=== PATIENT | female | born 1935 | race Caucasian/White ===

== ENCOUNTER → 2017-04-21 | Outpatient (CLI) | payer OTHER ==
[~2017-04-21] MED LIST: ACET325 PO; ADVAIR DISKUS INH; ALBU90OI INH; ALBU90OI61 INH; ALLEGRA ALLERG180 MG PO; ALLO300 PO; AMIT10 PO; AMIT25 PO; AMLO10 PO; AMOCLA875 PO; ASCO500 PO; ASPI81CH PO; Acidophilus La100 GM PO; Amlodipine Besy10 MG PO; Augmentin 875-1 EACH PO; BENAML10/2 PO; CALCA500CH PO; CALCAVITD PO; CALCIUM 1,0001 EACH PO; CEFU250T47 PO; CEFU500 PO; CEPH250A; CEPH500 PO; COMBIVENT RESPIM4 GM IH; CONEST.625 PO; Cranberry405 MG PO; DULERA 100 MCG/13 GM INH; FERR325 PO; FEXO180 PO; FLUSAL2505 IH; FLUSAL2505 INH; FURO20 PO; GABA300 PO; GUAI600T33 PO; Gemfibrozil600 MG PO; HYDACE10B; HYDACE5 PO; HYDACE5325 PO; HYDCHL25 PO; Hydrocodone-Ap1 EA20 PO; K-Dur20 MEQ PO; LAVAP17G PO; LEVFLO500 PO; LEVO750 PO; LEVSOD25 PO; LEVSOD50 PO; MECL12.5 PO; METF500 PO; METO100ER PO; METO50ER PO; MIRALAX17 GM PO; MONT10T PO; MULVITMIND PO; Nitrofurantoin50 MG PO; OINTMENT TOP; OMEP20ER PO; OMEPRAZOLE MAGN20 MG PO; ONDA4ODT PO; OXYACE5T PO; OXYB5 PO; OXYC1TAB11 PO; OXYM.05NI; Ocuvite Lutein1 EACH PO; POTCHL10ER PO; POTCHL20ER PO; PRED20 PO; PREMARIN VAGINAL VAG; PROACE100 PO; Percocet 10-321 EACH PO; Prednisone20 MG PO; SIMV10 PO; SIMV40 PO; SINUS PRESSURE-10 MG PO; SODCHL.65S; STOOL SOFTENER1 EAC1 PO; SULFATRIM 800-120 ML PO; TAMS.4ER PO; TAMSULOSIN HCL0.4 MG PO
[2017-04-21 11:28] LABS: BASOPHILS ABSOLUTE AUTO 0.03 K/mm3 (0.00-0.23); BASOPHILS PERCENT AUTO 0 % (0-2); EOSINOPHILS PERCENT AUTO 1 % (0-6); Hematocrit 39.4 % (33.0-51.0); Hemoglobin 12.9 g/dL (11.5-16.0); IMMATURE GRAN ABSOLUTE AUTO 0.03 K/mm3 (0.00-0.10); IMMATURE GRAN PERCENT AUTO 0 % (0-1); LYMPHOCYTES ABSOLUTE AUTO 0.92 K/mm3 (0.84-5.20); LYMPHOCYTES PERCENT AUTO 8 % (21-46); MONOCYTES PERCENT AUTO 6 % (4-13); Mean Corpuscular HGB 30.3 pg (26.0-34.0); Mean Corpuscular HGB Conc 32.7 g/dL (31.5-36.5); Mean Corpuscular Volume 93 fL (80-100); Mean Platelet Volume 10.3 fL (9.1-12.4); NEUTROPHILS ABSOLUTE AUTO 9.73 K/mm3 (1.96-9.15); NEUTROPHILS PERCENT AUTO 84 % (41-73); Platelet Count 187 K/mm3 (150-400); RDW Coefficient Variation 16.4 % (11.7-14.2); RDW Standard Deviation 55.6 fL (35.1-46.3); Red Blood Cell Count 4.26 M/mm3 (3.80-5.20); White Blood Cell Count 11.51 K/mm3 (4.00-11.30)
[2017-04-21 11:41] LABS: Alanine Aminotransfer (ALT/SGP 44 U/L (12-78); Albumin, Blood 3.4 g/dL (3.4-5.0); Albumin/Globulin Ratio 0.9 (0.8-1.8); Alk Phos 86 U/L (50-136); Anion Gap 7 mmol/L (6-16); Aspartate Aminotrans (AST/SGOT 80 U/L (12-37); Bilirubin, Total 0.3 mg/dL (0.1-1.0); Blood Urea Nitrogen 13 mg/dL (8-24); Bun/Creatinine Ratio 17.2 (12.0-20.0); CO2, Blood 25 mmol/L (21-32); Calcium, Blood 8.9 mg/dL (8.5-10.1); Chloride, Blood 105 mmol/L (98-108); Creatinine, Blood 0.75 mg/dL (0.40-1.00); Globulin, Blood 3.7 g/dL (2.2-4.0); Glomerular Filtration Rate >60 (60-); Glucose, Blood 152 mg/dL (70-99); Potassium, Blood 3.9 mmol/L (3.5-5.5); Sodium, Blood 137 mmol/L (136-145); Total Protein, Blood 7.1 g/dL (6.4-8.2)
== END ==
LOC: LAB 11:12
PROVIDERS: Family Medicine
DX: R30.0 Dysuria (principal); R06.02 Shortness of breath
CPT/HCPCS: 36415; 80053; 85025; 85651; 87086

== ENCOUNTER → 2017-05-22 | Outpatient (CLI) | payer OTHER ==
[2017-05-22 19:49] LABS: Bacteria Few /hpf; Red Blood Cells, Urine 0-2 /hpf (0-2); Squamous Epithelial Cells Few /hpf (Few); White Blood Cells, Urine 0-2 /hpf (0-5)
== END | disposition home or self-care (01) ==
LOC: LAB 14:16
PROVIDERS: Hospitalist
DX: N39.0 Urinary tract infection, site not specified (principal)
CPT/HCPCS: 81015; 87086

== ENCOUNTER → 2017-12-27 | Outpatient (CLI) | payer OTHER ==
[2017-12-27 18:44] LABS: BASOPHILS ABSOLUTE AUTO 0.06 K/mm3 (0.00-0.23); BASOPHILS PERCENT AUTO 0 % (0-2); EOSINOPHILS ABSOLUTE AUTO 0.09 K/mm3 (0.00-0.68); EOSINOPHILS PERCENT AUTO 1 % (0-6); Hematocrit 45.9 % (33.0-51.0); Hemoglobin 15.3 g/dL (11.5-16.0); IMMATURE GRAN ABSOLUTE AUTO 0.05 K/mm3 (0.00-0.10); IMMATURE GRAN PERCENT AUTO 0 % (0-1); LYMPHOCYTES ABSOLUTE AUTO 2.17 K/mm3 (0.84-5.20); LYMPHOCYTES PERCENT AUTO 16 % (21-46); MONOCYTES ABSOLUTE AUTO 1.09 K/mm3 (0.16-1.47); MONOCYTES PERCENT AUTO 8 % (4-13); Mean Corpuscular HGB 31.5 pg (26.0-34.0); Mean Corpuscular HGB Conc 33.3 g/dL (31.5-36.5); Mean Corpuscular Volume 94 fL (80-100); Mean Platelet Volume 10.2 fL (9.1-12.4); NEUTROPHILS ABSOLUTE AUTO 10.26 K/mm3 (1.96-9.15); NEUTROPHILS PERCENT AUTO 75 % (41-73); Platelet Count 224 K/mm3 (150-400); RDW Coefficient Variation 14.7 % (11.7-14.2); RDW Standard Deviation 51.3 fL (35.1-46.3); Red Blood Cell Count 4.86 M/mm3 (3.80-5.20); White Blood Cell Count 13.72 K/mm3 (4.00-11.30)
[2017-12-27 19:04] LABS: Calcium, Blood 9.5 mg/dL (8.5-10.1); Creatinine, Blood 0.92 mg/dL (0.40-1.00); Thyroid Stimulating Hormone 0.817 uIU/mL (0.360-4.800)
== END | disposition home or self-care (01) ==
LOC: LAB EV 18:39 → LAB SHORT 18:39
PROVIDERS: Physician Assistant Surgical
DX: I10 Essential (primary) hypertension (principal)
CPT/HCPCS: 80048; 84443; 85025

== ENCOUNTER → 2018-08-02 | Outpatient (CLI) | payer OTHER | END | disposition home or self-care (01) | LOC: LAB SHORT 16:20 → LAB 16:20 | DX: N34.2 Other urethritis (principal) | CPT/HCPCS: 87077; 87086; 87186 ==

== ENCOUNTER 2018-12-11 13:05 | Day surgery (SDC) | payer OTHER ==
[~2018-12-11] VITALS: Ht 165.1 cm; Wt 63.4 kg
== END 2018-12-11 14:16 | disposition home or self-care (01) ==
LOC: ORSCSDS 13:05
PROVIDERS: Anesthesiology
PROC: 3E0R33Z Introduction of Anti-inflammatory into Spinal Canal, Percutaneous Approach (ICD-10-PCS; principal; 2018-12-11 14:15)
DX: M51.16 Intervertebral disc disorders with radiculopathy, lumbar region (principal); E11.9 Type 2 diabetes mellitus without complications; I10 Essential (primary) hypertension; K21.9 Gastro-esophageal reflux disease without esophagitis; Z87.891 Personal history of nicotine dependence; Z79.84 Long term (current) use of oral hypoglycemic drugs; Z79.899 Other long term (current) drug therapy
CPT/HCPCS: J1040

== ENCOUNTER → 2019-07-01 | Outpatient (CLI) | payer OTHER | END | disposition home or self-care (01) | LOC: LAB SHORT 17:27 → LAB 17:27 | DX: N34.2 Other urethritis (principal) | CPT/HCPCS: 87077; 87086; 87186 ==

== ENCOUNTER → 2020-02-10 | Outpatient (CLI) | payer OTHER | END | disposition home or self-care (01) | LOC: LAB SHORT 15:05 → OLS 15:05 | DX: N34.2 Other urethritis (principal) | CPT/HCPCS: 87077; 87086; 87186 ==

== ENCOUNTER → 2020-02-26 | Outpatient (CLI) | payer OTHER | END | disposition home or self-care (01) | LOC: LAB SHORT 17:12 → LAB 17:12 | DX: N34.2 Other urethritis (principal) | CPT/HCPCS: 87077; 87086; 87186 ==

== ENCOUNTER 2020-04-27 17:43 | Inpatient (IN) | payer OTHER ==
[~2020-04-27] VITALS: Ht 165.1 cm; Wt 58.3 kg
[2020-04-27 18:48] LABS: BASOPHILS ABSOLUTE AUTO 0.07 K/mm3 (0.00-0.23); BASOPHILS PERCENT AUTO 0 % (0-2); EOSINOPHILS PERCENT AUTO 0 % (0-6); Hematocrit 41.5 % (33.0-51.0); Hemoglobin 13.3 g/dL (11.5-16.0); IMMATURE GRAN ABSOLUTE AUTO 0.19 K/mm3 (0.00-0.10); IMMATURE GRAN PERCENT AUTO 1 % (0-1); LYMPHOCYTES ABSOLUTE AUTO 1.99 K/mm3 (0.84-5.20); LYMPHOCYTES PERCENT AUTO 8 % (21-46); MONOCYTES ABSOLUTE AUTO 2.36 K/mm3 (0.16-1.47); MONOCYTES PERCENT AUTO 9 % (4-13); Mean Corpuscular HGB 31.1 pg (26.0-34.0); Mean Corpuscular Volume 97 fL (80-100); Mean Platelet Volume 10.9 fL (9.1-12.4); NEUTROPHILS ABSOLUTE AUTO 21.63 K/mm3 (1.96-9.15); NEUTROPHILS PERCENT AUTO 82 % (41-73); Platelet Count 218 K/mm3 (150-400); RDW Coefficient Variation 15.3 % (11.7-14.2); RDW Standard Deviation 54.4 fL (35.1-46.3); Red Blood Cell Count 4.27 M/mm3 (3.80-5.20); White Blood Cell Count 26.24 K/mm3 (4.00-11.30)
[2020-04-27] MEDS ORDERED: FUROSEMIDE20 MG PO (19:06)
[2020-04-27] MEDS ORDERED: ALLO300 PO ×2 (19:06→19:09)
[2020-04-27] MEDS ORDERED: SYNTHROID50 MC1 PO (19:07)
[2020-04-27 19:08] LABS: Albumin, Blood 3.2 g/dL (3.4-5.0); Bilirubin, Total 0.5 mg/dL (0.1-1.0); Bun/Creatinine Ratio 24.6 (12.0-20.0); Calcium, Blood 9.6 mg/dL (8.5-10.1); Creatinine, Blood 1.18 mg/dL (0.40-1.00); Globulin, Blood 3.3 g/dL (2.2-4.0); Potassium, Blood 4.8 mmol/L (3.5-5.5); Total Protein, Blood 6.5 g/dL (6.4-8.2)
[2020-04-27] MEDS ORDERED: NEURONTIN300 MG PO ×2 (19:08→19:41)
[2020-04-27] MEDS ORDERED: OXYCODONE-ACET1 EAC2 PO ×2 (19:08→19:46)
[2020-04-27] MEDS ORDERED: AMIT25 PO (19:10)
[2020-04-27] MEDS ORDERED: ROSUVASTATIN CAL5 MG PO (19:11)
[2020-04-27] MEDS ORDERED: TAMSULOSIN HCL0.4 M1 PO (19:11)
[2020-04-27] MEDS ORDERED: PRINIVIL10 MG PO ×2 (19:12→19:44)
[2020-04-27] MEDS ORDERED: FLUTICASONE-SA1 EAC9 INH ×2 (19:12→19:43)
[2020-04-27] MEDS ORDERED: AMLODIPINE BESY10 MG PO (19:13)
[2020-04-27] MEDS ORDERED: HIPREX1 G1 PO ×2 (19:13→19:44)
[2020-04-27] MEDS ORDERED: METF500 PO (19:13)
[2020-04-27] MEDS ORDERED: OMEP20ER PO ×2 (19:13→19:44)
[2020-04-27] MEDS ORDERED: Ventolin/Prove6.7 GM INH (19:14)
[2020-04-27] MEDS ORDERED: METO100ER PO (19:42)
[2020-04-27] MEDS ORDERED: ASCO500 PO (19:45)
[2020-04-27 20:41] LABS: Influenza A, PCR Negative (NEGATIVE); Influenza B, PCR Negative (NEGATIVE); Resp Syncytial Virus, PCR Negative (NEGATIVE); SARS-Cov-2 (COVID-19) PCR, MMC Negative (NEGATIVE)
--- NOTE | 2020-04-28 | NUR ---
Critical lactic acid value 2.[address] Keller notified, order for LR at 100 cc per hour.
[2020-04-28] MEDS ORDERED: FLUT1DIS5 INH (03:44)
[2020-04-28 05:10] LABS: Source, Urine Clean Catch
[2020-04-28 05:23] LABS: Appearance, Urine Hazy (Clear); Bilirubin, Urine Neg (Neg); Blood, Urine 1+ (Neg); Color, Urine Yellow (P-Yellow); Glucose Qualitative, Urine Neg (Neg); Ketones, Urine Neg (Neg); Leukocyte Esterase, Urine 3+ (Neg); Nitrite, Urine Neg (Neg); Protein, Urine 1+ (Neg); Urobilinogen, Urine NORM (Normal)
[2020-04-28 05:31] LABS: Bacteria Many /hpf; Red Blood Cells, Urine 0-2 /hpf (0-2); Squamous Epithelial Cells Mod /hpf (Few); White Blood Cells, Urine TNTC /hpf (0-5)
[2020-04-28 05:32] LABS: Transitional Epithelial Cells Few /hpf (0-Rare)
--- NOTE | 2020-04-28 06:38 | NUR ---
SHIFT SUMMARY NEW ADMIT TO FLOOR LAST NIGHT. ADMITTED FOR SEPSIS R/T PNEUMONIA. ACCORDING TO ER NURSE REPORT PT WAS HAVING BLOOD IN SPUTUM, BUT NONE SINCE ON MED FLOOR. AOX4. WHEN PT ARRIVED TO FLOOR SPO2 LOW 70'S ON RA, PLACED ON 2L O2 & SPO2 INCREASED TO 92%. PT GETS DYSPNIC c ACTIVITY. RT CHECKED SPO2 AFTER AMBULATION LAST NIGHT & SAID PT DESATS TO HIGH 80'S c AMBULATION SO THEY INCREASED O2 TO 3L. LUNGS SOUND DIM c EXP WHEEZES HEARD IN L LOBES. PT HAD CRITICAL LA @2.4 LAST NIGHT, HOSPITALIST ORDERED LR @100ML/HR, LA HAS SINCE DECREASED TO 1.9. PT REPORTS PAIN "IN LUNGS" / & BLE FROM NEUROPATHY, MEDICATED 1X c OXYCODONE. SBY ASSIST c TRANSFERS. CALL LIGHT IN REACH.
--- NOTE | 2020-04-28 17:01 | NUR ---
PT IS A/OX3, PLEASANT AND COOPERATIVE, THE PT IS UP WITH MINIMAL ASSIST TO THE BATHROOM, THE PT IS ON 3L/MIN O2 VIA NC, THE PT WAS MEDICATED FOR PAIN IN HER CHEST WITH COUGHING X2 TODAY, THE PT REPORTED HAVING SHAKES THIS AM IT WAS DETERMINED THAT THE SHAKINESS WAS MOST LIKLY FROM PREDNISONE AND AN ELEVATED BLOOD SUGAR, THE SHAKING IMPROVED THIS AFTERNOON, THE PTS DAUGHTER IS IN TO VISIT, CALL LIGHT IN REACH, WILL CONTINUE TO MONITOR AND ASSESS FOR CHANGES
--- NOTE | 2020-04-29 04:21 | NUR ---
SHIFT SUMMARY: VSS. AFEB. AAOX3. ABLE TO MAKE NEEDS KNOWN. CALL APPROPRIATELY. NO ATTEMPTS TO SELF T/F- ASSISTANCE NEEDED W/ 02 AND IV TUBING MANAGEMENT. CONTINENT. IV FLUIDS INFUSING CONTINUOUSLY. LSCTA. 02 90-95% ON 2L VIA NC. NO ACUTE CONCERNS OVERNIGHT. WILL CONT TO MONITOR.
--- NOTE | 2020-04-29 09:26 | NUR ---
O2 SATS ATTEMPTED TO TAKE THE PT OFF OF O2, PT SATS WITH ACTIVITY RANGED 87% TO 89%, REAPPLIED O2 @ 2L/MIN
[2020-04-29 13:03] LABS: BASOPHILS ABSOLUTE AUTO 0.03 K/mm3 (0.00-0.23); BASOPHILS PERCENT AUTO 0 % (0-2); EOSINOPHILS ABSOLUTE AUTO 0.02 K/mm3 (0.00-0.68); EOSINOPHILS PERCENT AUTO 0 % (0-6); Hematocrit 37.5 % (33.0-51.0); Hemoglobin 11.8 g/dL (11.5-16.0); IMMATURE GRAN ABSOLUTE AUTO 0.14 K/mm3 (0.00-0.10); IMMATURE GRAN PERCENT AUTO 1 % (0-1); LYMPHOCYTES ABSOLUTE AUTO 1.05 K/mm3 (0.84-5.20); LYMPHOCYTES PERCENT AUTO 6 % (21-46); MONOCYTES ABSOLUTE AUTO 0.99 K/mm3 (0.16-1.47); MONOCYTES PERCENT AUTO 6 % (4-13); Mean Corpuscular HGB 31.1 pg (26.0-34.0); Mean Corpuscular HGB Conc 31.5 g/dL (31.5-36.5); Mean Corpuscular Volume 99 fL (80-100); Mean Platelet Volume 10.7 fL (9.1-12.4); NEUTROPHILS ABSOLUTE AUTO 14.54 K/mm3 (1.96-9.15); NEUTROPHILS PERCENT AUTO 87 % (41-73); Platelet Count 205 K/mm3 (150-400); RDW Coefficient Variation 15.8 % (11.7-14.2); RDW Standard Deviation 57.2 fL (35.1-46.3); White Blood Cell Count 16.77 K/mm3 (4.00-11.30)
[2020-04-29 13:18] LABS: Alanine Aminotransfer (ALT/SGP 25 U/L (12-78); Albumin, Blood 2.8 g/dL (3.4-5.0); Albumin/Globulin Ratio 0.8 (0.8-1.8); Alk Phos 82 U/L (50-136); Anion Gap 5 mmol/L (6-16); Aspartate Aminotrans (AST/SGOT 26 U/L (12-37); Bilirubin, Total 0.2 mg/dL (0.1-1.0); Blood Urea Nitrogen 32 mg/dL (8-24); Bun/Creatinine Ratio 36.7 (12.0-20.0); CO2, Blood 26 mmol/L (21-32); Calcium, Blood 9.2 mg/dL (8.5-10.1); Chloride, Blood 108 mmol/L (98-108); Creatinine, Blood 0.87 mg/dL (0.40-1.00); Globulin, Blood 3.7 g/dL (2.2-4.0); Glomerular Filtration Rate >60 (60-); Glucose, Blood 109 mg/dL (70-99); Potassium, Blood 4.4 mmol/L (3.5-5.5); Sodium, Blood 139 mmol/L (136-145); Total Protein, Blood 6.5 g/dL (6.4-8.2)
[2020-04-29] MEDS ORDERED: AZIT500 PO (14:01)
[2020-04-29] MEDS ORDERED: IPRAT-ALBUT 0.5-3 ML INH (14:03)
[2020-04-29] MEDS ORDERED: PRED20 PO (14:04)
[2020-04-29] MEDS ORDERED: CEFD300 PO (14:05)
--- NOTE | 2020-04-29 16:21 | NUR ---
PT DISCHARGED THE PT AND HER FAMILY VERBALIZED UNDERSTANDING OF THE DC INSTRUCTIONS, THE PTS PRESCRIPTIONS WERE FAXED TO [facility] REQUESTED, THE PT'S OXYGEN WAS DELIVERED AND APPLIED PRIOR TO DC, THE PT WAS TRANSFERED VIA WHEELCHAIR ACCOMPANIED BY HER DAUGHTER AND THE BALING MACHINE OPERATOR, THE PT WAS A/OX3 AT THE TIME OF DC
== END 2020-04-29 14:46 | disposition home or self-care (01) | DRG 871 ==
LOC: ER 17:43 → MEDS 21:17 → SURS 21:17 → MEDS 21:33
PROVIDERS: Emergency Medicine; Internal Medicine; ADMIT Internal Medicine
DX: A41.9 Sepsis, unspecified organism (principal); J18.9 Pneumonia, unspecified organism; N39.0 Urinary tract infection, site not specified; J44.0 Chronic obstructive pulmonary disease with (acute) lower respiratory infection; J44.1 Chronic obstructive pulmonary disease with (acute) exacerbation; J96.11 Chronic respiratory failure with hypoxia; I13.0 Hypertensive heart and chronic kidney disease with heart failure and stage 1 through stage 4 chronic kidney disease, or unspecified chronic kidney disease; Z20.828 Contact with and (suspected) exposure to other viral communicable diseases; N18.30 Chronic kidney disease, stage 3 unspecified; E11.22 Type 2 diabetes mellitus with diabetic chronic kidney disease; I27.20 Pulmonary hypertension, unspecified; I34.0 Nonrheumatic mitral (valve) insufficiency; I50.9 Heart failure, unspecified; Z99.81 Dependence on supplemental oxygen; Z87.891 Personal history of nicotine dependence; Z79.84 Long term (current) use of oral hypoglycemic drugs; Z79.51 Long term (current) use of inhaled steroids
CPT/HCPCS: 0241U; 36415; 71045; 80053; 81001; 82947; 83605; 83880; 85025; 87040; 87077; 87086; 87186; 93005; 93010; 94640; 94664; 94760; 94761; 96365; 99285-25; A9270; A9270-GY; J0696; J1650; J2543; J7120; J7512

== ENCOUNTER 2020-10-22 16:35 | Inpatient (IN) | payer MEDICARE, OTHER ==
[~2020-10-22] VITALS: Ht 165.1 cm; Wt 59.0 kg
[~2020-10-22 16:35] MED LIST changes: +AMLODIPINE BESY10 MG PO; +AZIT500 PO; +CEFD300 PO; +FLUT1DIS5 INH; +FLUTICASONE-SA1 EAC9 INH; +FUROSEMIDE20 MG PO; +HIPREX1 G1 PO; +IPRAT-ALBUT 0.5-3 ML INH; +LISI10 PO; +NEURONTIN300 MG PO; +OXYCODONE-ACET1 EAC2 PO; +PRINIVIL10 MG PO; +ROSUVASTATIN CAL5 MG PO; +SYNTHROID50 MC1 PO; +TAMSULOSIN HCL0.4 M1 PO; +Ventolin/Prove6.7 GM INH
[2020-10-22] MEDS ORDERED: POTCHL20ER PO (16:58)
[2020-10-22 17:06] LABS: BASOPHILS ABSOLUTE AUTO 0.04 K/mm3 (0.00-0.23); BASOPHILS PERCENT AUTO 0 % (0-2); EOSINOPHILS PERCENT AUTO 0 % (0-6); Hemoglobin 14.2 g/dL (11.5-16.0); IMMATURE GRAN ABSOLUTE AUTO 0.15 K/mm3 (0.00-0.10); IMMATURE GRAN PERCENT AUTO 1 % (0-1); LYMPHOCYTES ABSOLUTE AUTO 0.79 K/mm3 (0.84-5.20); LYMPHOCYTES PERCENT AUTO 4 % (21-46); MONOCYTES ABSOLUTE AUTO 1.41 K/mm3 (0.16-1.47); MONOCYTES PERCENT AUTO 6 % (4-13); Mean Corpuscular HGB Conc 33.8 g/dL (31.5-36.5); Mean Corpuscular Volume 95 fL (80-100); Mean Platelet Volume 10.5 fL (9.1-12.4); NEUTROPHILS ABSOLUTE AUTO 20.37 K/mm3 (1.96-9.15); NEUTROPHILS PERCENT AUTO 89 % (41-73); Platelet Count 183 K/mm3 (150-400); RDW Coefficient Variation 14.7 % (11.7-14.2); RDW Standard Deviation 51.2 fL (35.1-46.3); Red Blood Cell Count 4.44 M/mm3 (3.80-5.20); White Blood Cell Count 22.76 K/mm3 (4.00-11.30)
[2020-10-22 17:32] LABS: Alanine Aminotransfer (ALT/SGP 26 U/L (12-78); Albumin, Blood 3.4 g/dL (3.4-5.0); Albumin/Globulin Ratio 0.8 (0.8-1.8); Alk Phos 88 U/L (50-136); Anion Gap 6 mmol/L (6-16); Aspartate Aminotrans (AST/SGOT 38 U/L (12-37); Bilirubin, Total 0.9 mg/dL (0.1-1.0); Blood Urea Nitrogen 13 mg/dL (8-24); Bun/Creatinine Ratio 17.1 (12.0-20.0); CO2, Blood 26 mmol/L (21-32); Calcium, Blood 9.5 mg/dL (8.5-10.1); Chloride, Blood 98 mmol/L (98-108); Creatinine, Blood 0.76 mg/dL (0.40-1.00); Globulin, Blood 4.5 g/dL (2.2-4.0); Glomerular Filtration Rate >60 (60-); Glucose, Blood 145 mg/dL (70-99); Potassium, Blood 3.7 mmol/L (3.5-5.5); Sodium, Blood 130 mmol/L (136-145); Total Protein, Blood 7.9 g/dL (6.4-8.2)
[2020-10-22] MEDS ORDERED: CYMBALTA30 M2 PO (18:09)
[2020-10-22] MEDS ORDERED: SPIRIVA RESPIMAT4 G3 INH (18:14)
[2020-10-22 18:44] LABS: Base Excess Venous 3.6 mmol/L; Bicarbonate Venous 25.4 mmol/L (24.0-30.0); PCO2 Venous 48.2 mmHg (38-42); PO2 Venous 24.6 mmHg (38-42); pH Blood Venous 7.38 (7.34-7.37)
[2020-10-22 19:12] LABS: International Normalized Ratio 1.07; Prothrombin Time Results 11.5 Sec (9.7-11.5)
[2020-10-22] MEDS ORDERED: PRESERVISION A1 EAC1 PO (19:17)
[2020-10-22 19:25] LABS: Source, Urine Catheter
[2020-10-22 19:31] LABS: Appearance, Urine Cloudy (Clear); Bilirubin, Urine Neg (Neg); Blood, Urine 4+ (Neg); Color, Urine Yellow (P-Yellow); Glucose Qualitative, Urine Neg (Neg); Ketones, Urine 1+ (Neg); Leukocyte Esterase, Urine 3+ (Neg); Nitrite, Urine Pos (Neg); Protein, Urine 3+ (Neg); Specific Gravity, Urine 1.015 (1.003-1.022); Urobilinogen, Urine NORM (Normal)
[2020-10-22 19:40] LABS: Bacteria Many /hpf; Red Blood Cells, Urine 25-50 /hpf (0-2); Squamous Epithelial Cells Mod /hpf (Few); White Blood Cells, Urine TNTC /hpf (0-5)
[2020-10-22 19:41] LABS: Transitional Epithelial Cells Few /hpf (0-Rare)
[2020-10-22 21:29] LABS: SARS-Cov-2 (COVID-19) PCR, MMC NEGATIVE (NEGATIVE)
--- NOTE | 2020-10-22 22:50 | NUR ---
PT ARRIVED TO FLOOR AT APPOX 2044. PT HAD SOME CONFUSION AND IS [place]. PT DENIED CHES PAIN. PT WAS ON BIPAP. VITALS WERE STABLE. DAUGHTERS AT BEDSIDE. DAUGHTER WILL BE STAYING THE NIGHT "IN CASE SHE GETS CONFUSED AGAIN." DAUGHTER STATES THAT THERE IS NO DIAGNOSIS OF DEMENTIA OR PRIOR CONFUSION.
[2020-10-23 01:48] LABS: BASOPHILS ABSOLUTE AUTO 0.03 K/mm3 (0.00-0.23); BASOPHILS PERCENT AUTO 0 % (0-2); EOSINOPHILS PERCENT AUTO 0 % (0-6); Hematocrit 39.3 % (33.0-51.0); Hemoglobin 13.2 g/dL (11.5-16.0); IMMATURE GRAN ABSOLUTE AUTO 0.19 K/mm3 (0.00-0.10); IMMATURE GRAN PERCENT AUTO 1 % (0-1); LYMPHOCYTES ABSOLUTE AUTO 0.59 K/mm3 (0.84-5.20); LYMPHOCYTES PERCENT AUTO 3 % (21-46); MONOCYTES ABSOLUTE AUTO 0.75 K/mm3 (0.16-1.47); MONOCYTES PERCENT AUTO 4 % (4-13); Mean Corpuscular HGB 31.7 pg (26.0-34.0); Mean Corpuscular HGB Conc 33.6 g/dL (31.5-36.5); Mean Corpuscular Volume 95 fL (80-100); NEUTROPHILS ABSOLUTE AUTO 17.34 K/mm3 (1.96-9.15); NEUTROPHILS PERCENT AUTO 92 % (41-73); Platelet Count 156 K/mm3 (150-400); RDW Coefficient Variation 14.6 % (11.7-14.2); RDW Standard Deviation 50.9 fL (35.1-46.3); Red Blood Cell Count 4.16 M/mm3 (3.80-5.20)
[2020-10-23 02:14] LABS: Alanine Aminotransfer (ALT/SGP 23 U/L (12-78); Albumin, Blood 2.8 g/dL (3.4-5.0); Albumin/Globulin Ratio 0.7 (0.8-1.8); Alk Phos 77 U/L (50-136); Anion Gap 8 mmol/L (6-16); Aspartate Aminotrans (AST/SGOT 32 U/L (12-37); Bilirubin, Total 0.5 mg/dL (0.1-1.0); Blood Urea Nitrogen 14 mg/dL (8-24); Bun/Creatinine Ratio 19.4 (12.0-20.0); CO2, Blood 26 mmol/L (21-32); Calcium, Blood 8.8 mg/dL (8.5-10.1); Chloride, Blood 102 mmol/L (98-108); Creatinine, Blood 0.72 mg/dL (0.40-1.00); Globulin, Blood 3.8 g/dL (2.2-4.0); Glomerular Filtration Rate >60 (60-); Glucose, Blood 187 mg/dL (70-99); Potassium, Blood 2.9 mmol/L (3.5-5.5); Sodium, Blood 136 mmol/L (136-145); Total Protein, Blood 6.6 g/dL (6.4-8.2)
[2020-10-23 02:20] LABS: Troponin I 0.874 ng/mL (0.000-0.040)
--- NOTE | 2020-10-23 02:20 | NUR ---
NOTIFIED CHARGE NURSE LINDY MORRIS ABOUT INCREASE OF TROPONIN LABS. WILL CONTINUE TO MONITOR.
--- NOTE | 2020-10-23 06:35 | NUR ---
SHIFT SUMMARY PT IS ALERT WITH SOME CONFUSION VITALS ARE STABLE AND IS ON 4L NC. PT DENIES CHEST PAIN OR SOB. PT CAME ONTO FLOOR ON BIPAP WAS LATER ABLE TO BE ON NC. PT IS SATING 92% AND ABOVE BUT DESATS WITH EXERTION. PT IS UP TO BSC WITH MODERATE ASSIST. PT HAS BEEN DIAPHORETIC AND HAS HAD CHILLS T/O NIGHT. PT'S TEMP HAS BEEN TAKEN ORAL AND TEMPORAL. PT USES CALL LIGHT APPROPRIETLY WHEN ON COMMODE BUT GETS UP WITHOUT CALLING. BED ALARM HAS BEEN ON T/O NIGHT.
--- NOTE | 2020-10-23 10:53 | NUR ---
PATIENT COMPLAINS OF CHEST PAIN AND TINGLING RADIATING FROM R. CHEST TO UPPER ARM/SHOULDER. PATIENT APPEARS DIAPHORETIC, AND COMPLAINS OF NAUSEA. PATIENT MEDICATED WITH ZOFRAN PER EMAR. DR. BIRMINGHAM NOTIFIED, ORDERS FOR EKG, CARDIOLOGY CONSULT, AND HEPARIN DRIP GIVEN.
--- NOTE | 2020-10-23 17:25 | NUR ---
SHIFT SUMMARY PATIENT ALERT AND ORIENTED, IRRITABLE AND FORGETFUL AT TIMES. BED ALARM IN PLACE. PATIENT COMPLAINED OF CHEST PAIN ONCE THIS SHIFT, SEE NURSE NOTE AT 1053. NO OTHER ACUTE EVENTS THIS SHIFT. PATIENT REMAINED ON 3-5 L O2 VIA NASAL CANNULA. SBA TO BEDSIDE COMMODE. PATIENT COMPLAINED OF "PAIN ALL OVER", MEDICATED PER EMAR. PATIENT ASSISTED WITH REPOSITIONIG THROUGHOUT SHIFT.
--- NOTE | 2020-10-23 20:00 | NUR ---
ASSUMED CARE PT IS SOUNDLY ASLEEP. PT IS AROUSABLE TO VERBAL STIMULI BUT VERY TIRED. VITALS ARE STABLE AND DENIES CHEST PAIN OR SOB. PT IS ON 4L NC WITH SATS ABOVE 92%. CALL LIGHT IS WITHIN REACH. WILL CONTINUE TO MONITOR.
--- NOTE | 2020-10-24 05:14 | NUR ---
SHIFT SUMMARY PT IS ALERT NO CONFUSION NOTED. PT IS VERY TIRED AND HAS SLEPT MOST OF THE SHIFT. PT TURNS SELF. NO ACUTE CHANGES. PT DENIES CHEST PAIN OR SOB. SATS ABOVE 92% ON 4L NC. PT IS UP TO COMMODE WITH ONE ASSIT. BED ALARM IS ON. PT IS USING CALL LIGHT APPROPRIETLY.
[2020-10-24 08:02] LABS: BASOPHILS ABSOLUTE AUTO 0.02 K/mm3 (0.00-0.23); BASOPHILS PERCENT AUTO 0 % (0-2); EOSINOPHILS PERCENT AUTO 0 % (0-6); Hematocrit 35.3 % (33.0-51.0); Hemoglobin 11.6 g/dL (11.5-16.0); IMMATURE GRAN ABSOLUTE AUTO 0.15 K/mm3 (0.00-0.10); IMMATURE GRAN PERCENT AUTO 1 % (0-1); LYMPHOCYTES ABSOLUTE AUTO 0.83 K/mm3 (0.84-5.20); LYMPHOCYTES PERCENT AUTO 4 % (21-46); MONOCYTES ABSOLUTE AUTO 0.91 K/mm3 (0.16-1.47); MONOCYTES PERCENT AUTO 4 % (4-13); Mean Corpuscular HGB 31.8 pg (26.0-34.0); Mean Corpuscular HGB Conc 32.9 g/dL (31.5-36.5); Mean Corpuscular Volume 97 fL (80-100); NEUTROPHILS ABSOLUTE AUTO 19.02 K/mm3 (1.96-9.15); NEUTROPHILS PERCENT AUTO 91 % (41-73); Platelet Count 183 K/mm3 (150-400); RDW Coefficient Variation 15.1 % (11.7-14.2); RDW Standard Deviation 53.6 fL (35.1-46.3); Red Blood Cell Count 3.65 M/mm3 (3.80-5.20); White Blood Cell Count 20.93 K/mm3 (4.00-11.30)
[2020-10-24 08:25] LABS: Anion Gap 4 mmol/L (6-16); Blood Urea Nitrogen 35 mg/dL (8-24); Bun/Creatinine Ratio 38.8 (12.0-20.0); CO2, Blood 26 mmol/L (21-32); Calcium, Blood 8.4 mg/dL (8.5-10.1); Chloride, Blood 104 mmol/L (98-108); Glomerular Filtration Rate >60 (60-); Glucose, Blood 119 mg/dL (70-99); Sodium, Blood 134 mmol/L (136-145)
--- NOTE | 2020-10-24 10:16 | NUR ---
TRANSFER TO MEDICAL FLOOR GAVE REPORT OVER PHONE TO MEDICAL FLOOR RN. INFORMED OF PATIENT CURRENT STATUS, VS, LUNG SOUNDS, TELE RATE RHYTHM, ADMIT DX, AND CURRENT TREATMENT WITH ABX.
--- NOTE | 2020-10-24 13:42 | NUR ---
PT ARRIVED FROM PCU AROUND 1130. AT 1140, PT CONVERTED TO AFIB, THIS IS FOLLOWED BY CONTINUALLY SWITCHING BACK AND FORTH FROM AFIB TO NSR. DR BIRMINGHAM AWARE, HE ORDERED IV METOPROLOL FOR HR ABOVE 120. PT ASYMPTOMATIC AND GETTING UP TO BSC AT 1200, WENT IN TO FIND PT VERY DIFFICULT TO ROUSE IN BED, VERY DUSKY/BLUE FACE. OXYGEN SATS SHOW 67% ON 2L NC. INCREASED OXYGEN, RT CALLED, ABLE TO RECOVER PT TO 95% ON 5L. PT NOW ON 5L BY PROCEDURE MASK (FEELS LIKE PRONGS ON NC ARE CREATING A PRESSURE ULCER IN HER NOSE), SATS IN LOW 90S. DR BIRMINGHAM CALLED AND HE ORDERED CXR AND WCTM. AWAITING CXR RESULTS
--- NOTE | 2020-10-24 19:14 | NUR ---
SHIFT SUMMARY SEE PREVIOUS NOTE ABOUT AFIB AND DESATURATION EPISODE. PT NOW STABLE ON 4L BY NC, NEEDS 5L WITH ACTIVITY. SBA TO BSC, BED ALARM ON. GOOD PO INTAKE. BLOOD SUGARS STABLE. CALL LIGHT IN REACH, REPORT GIVEN TO NIGHT NURSE
--- NOTE | 2020-10-25 04:39 | NUR ---
SHIFT SUMMARY NO ACUTE CHANGES THIS SHIFT, NO C/O ANY KIND, REMAINS ON 4L O2 (DESATTING W/ACTIVITY REQUIRING 5L), UP W/MINIMAL ASSIST TO BSC, ABLE TO MAKE NEEDS KNOWN, SLEPT T/O THE NIGHT & SLEEPING AT THIS TIME, CALL LIGHT IN REACH, WILL CONT TO MONITOR UNTIL REPORT GIVEN TO DAY RN.
[2020-10-25 08:29] LABS: BASOPHILS ABSOLUTE AUTO 0.01 K/mm3 (0.00-0.23); BASOPHILS PERCENT AUTO 0 % (0-2); EOSINOPHILS PERCENT AUTO 0 % (0-6); Hematocrit 33.6 % (33.0-51.0); Hemoglobin 11.1 g/dL (11.5-16.0); IMMATURE GRAN ABSOLUTE AUTO 0.08 K/mm3 (0.00-0.10); IMMATURE GRAN PERCENT AUTO 1 % (0-1); LYMPHOCYTES ABSOLUTE AUTO 0.71 K/mm3 (0.84-5.20); LYMPHOCYTES PERCENT AUTO 7 % (21-46); MONOCYTES ABSOLUTE AUTO 0.35 K/mm3 (0.16-1.47); MONOCYTES PERCENT AUTO 3 % (4-13); Mean Corpuscular HGB 31.7 pg (26.0-34.0); Mean Corpuscular Volume 96 fL (80-100); NEUTROPHILS ABSOLUTE AUTO 9.61 K/mm3 (1.96-9.15); NEUTROPHILS PERCENT AUTO 89 % (41-73); Platelet Count 211 K/mm3 (150-400); RDW Coefficient Variation 15.3 % (11.7-14.2); RDW Standard Deviation 53.8 fL (35.1-46.3); White Blood Cell Count 10.76 K/mm3 (4.00-11.30)
[2020-10-25 08:42] LABS: Anion Gap 5 mmol/L (6-16); Blood Urea Nitrogen 46 mg/dL (8-24); CO2, Blood 26 mmol/L (21-32); Calcium, Blood 8.2 mg/dL (8.5-10.1); Chloride, Blood 105 mmol/L (98-108); Creatinine, Blood 0.89 mg/dL (0.40-1.00); Glomerular Filtration Rate >60 (60-); Glucose, Blood 134 mg/dL (70-99); Potassium, Blood 4.3 mmol/L (3.5-5.5); Sodium, Blood 136 mmol/L (136-145)
--- NOTE | 2020-10-25 10:10 | NUR ---
PER DR.DAUER ZEPEDA [facility].
--- NOTE | 2020-10-25 12:25 | NUR ---
PATIENT C/O HEADACHE NOT HELPED BY NORCO. STS UNSURE IF MIGRANE OR SINUS. PER ORDER TYLENOL 650 MG Q 6 HRS PRN.
--- NOTE | 2020-10-25 14:53 | NUR ---
ALERT. C/O "PAIN ALL OVER" RELIEVED BY NARCOTIC PAIN MED. OXYGEN DOWN TO 3 LPM W/SATS IN 90'S. COOPERATIVE. C/O "FOGGY HEAD" FEW HOURS AFTER NARCOTIC MED. DENIES ; C.P. OR NAUSEA. UNLABORED RESPIRATIONS. POSSIBLE HOME WITH HOME HEALTH. [facility]
--- NOTE | 2020-10-26 04:20 | NUR ---
SHIFT SUMMARY A/OX3, 1 ASSIST TO BSC. CURRENTLY ON BASELINE 3L VIA NC WITH SATS GREATER THAN 90. IV ABX GIVEN. VSS, NO ACUTE CHANGES AT THIS TIME. BED IN LOWEST POSITION WITH CALL LIGHT IN REACH. WILL CONTINUE TO MONITOR AND REPORT TO ONCOMING RN.
[2020-10-26] MEDS ORDERED: ASPI81CH PO (12:06)
[2020-10-26] MEDS ORDERED: DILT120 PO (12:14)
[2020-10-26] MEDS ORDERED: AMOCLA875 PO (12:15)
[2020-10-26] MEDS ORDERED: HYDACE10B PO (12:15)
[2020-10-26] MEDS ORDERED: AZIT250 PO (12:15)
[2020-10-26] MEDS ORDERED: PRED20 PO (12:16)
--- NOTE | 2020-10-26 15:07 | NUR ---
PATIENT DISCHARGE: PATIENT DISCHARGED TO HOME / XFR TO HOME HEALTH THIS SHIFT. MEDICATION RECONCILIATION COMPLETED; MED LIST FAXED TO [facility]. DISCHARGE EDUCATION COMPLETED WITH PATIENT AND FAMILY. PATIENT TRANSPORTED TO EXIT BY [facility] STAFF WITH WHEELCHAIR AT 1500. PATIENT DEPARTED [facility] VIA PRIVATE AUTO.
--- NOTE | 2020-10-26 16:33 | NUR ---
ADMIT: 10/23/2020 DISCHARGE: 10/26/2020 DX: Acute respiratory failure CC: Eliana CALL:RESIDENCE: HomeCAREGIVER: Daughter Ciara [phone] DX: COPD, CHF, CKD, HTN, see list DME: nebulizers, portal oxygen concentrator, glucometerCCM: 2016 pt. declined HOME HEALTH: [facility] in 2011, Discharged on [facility] HH Update 10/26/20 1629: Discharged orders placed earlier this afternoon by Dr. Moreno. Prior to discharge daughter brought in portable oxygen which did not go up to high flow (above 4 LPM). Per home oxygen assessment, pt. is needing 3 LPM at rest and 5 LPM while walking. Discussed alternative options with pt. and daughter. Agreed on ordering being placed through [facility]. The patient declined to allow me to order new portable box concentrator that she has had previously from [facility]. She stated that she will wait and talk with [facility] in [place]. This was discussed at length for approximately 20 minutes. I advised pt. to contact our office with questions or concerns. F/U visit scheduled with Dr. Moreno and discharge letter given to pt. (appt. date and time written on letter). During JABARI call, staff will ensure that pt. is set up to continue receiving oxygen therapy. Update 10/26/2020: Per chart review this am with Dr. Moreno, pt. appropriate for discharge. Spoke with pt and she is agreeable to home health services through [facility]. During discharge planning process safety concerns and questions were addressed with pt. and daughter. No concerns other than the need for additional healthcare architect support. Daughter declined ordering of oxygen supplies as she had stated that pt. has her own at home. We discussed need for concentrator to go up to 5 LPM she stated her understanding. Update 10/25/2020: Per chart review this am with Dr. Moreno, pt. likely to discharge within 24-48 hours. Home health recommended by physician and PT. Discussed home health services with pt. and daughter Ciara. Ciara had requested to learn more about HH and she did not have a preference on provider. Mahsa from [facility] home health came with me to bedside to answer questions from daughter and patient. Request for time to think about it. Also provided a packet with resources and a list of in-home caregivers with contact info.
== END 2020-10-26 15:00 | disposition home health service (06) | DRG 871 ==
LOC: ER 16:35 → PCU 16:36 → MEDS 21:45 → PCU 21:45 → MEDS 10-24 10:30
PROVIDERS: Emergency Medicine; Internal Medicine; Physician Assistant; ADMIT Internal Medicine
PROC: 5A09357 Assistance with Respiratory Ventilation, Less than 24 Consecutive Hours, Continuous Positive Airway Pressure (ICD-10-PCS; principal; 2020-10-22)
DX: A41.51 Sepsis due to Escherichia coli [E. coli] (principal); J18.9 Pneumonia, unspecified organism; G93.41 Metabolic encephalopathy; J96.21 Acute and chronic respiratory failure with hypoxia; I50.33 Acute on chronic diastolic (congestive) heart failure; I21.A1 Myocardial infarction type 2; I13.0 Hypertensive heart and chronic kidney disease with heart failure and stage 1 through stage 4 chronic kidney disease, or unspecified chronic kidney disease; J44.1 Chronic obstructive pulmonary disease with (acute) exacerbation; J44.0 Chronic obstructive pulmonary disease with (acute) lower respiratory infection; E87.1 Hypo-osmolality and hyponatremia; N39.0 Urinary tract infection, site not specified; N17.9 Acute kidney failure, unspecified; Z20.822 Contact with and (suspected) exposure to COVID-19; F32.9 Major depressive disorder, single episode, unspecified; N18.30 Chronic kidney disease, stage 3 unspecified; E03.9 Hypothyroidism, unspecified; E11.22 Type 2 diabetes mellitus with diabetic chronic kidney disease; K21.9 Gastro-esophageal reflux disease without esophagitis; E78.5 Hyperlipidemia, unspecified; I27.20 Pulmonary hypertension, unspecified; Z91.030 Bee allergy status; Z79.899 Other long term (current) drug therapy; Z90.710 Acquired absence of both cervix and uterus; Z88.8 Allergy status to other drugs, medicaments and biological substances; Z90.49 Acquired absence of other specified parts of digestive tract; Z98.890 Other specified postprocedural states; E11.40 Type 2 diabetes mellitus with diabetic neuropathy, unspecified; I48.0 Paroxysmal atrial fibrillation; I08.1 Rheumatic disorders of both mitral and tricuspid valves; E87.5 Hyperkalemia; R65.20 Severe sepsis without septic shock
CPT/HCPCS: 36415; 51700; 70450; 71045; 71046; 80048; 80053; 81001; 82803; 82947; 83605; 83880; 84145; 84484; 85025; 85610; 85730; 86140; 87040; 87077; 87086; 87186; 93005; 93010; 93306; 94640; 94644; 94660; 94664; 94667; 94760; 94761; 94762; 96365; 96367; 96375; 99285-25; A9270; G0378; J0456; J0696; J1644; J1650; J1940; J2405; J2920; J2930; J3480; J7050; J7120; U0004

== ENCOUNTER → 2020-11-05 | Outpatient (CLI) | payer OTHER ==
[~2020-11-05] MED LIST changes: +AZIT250 PO; +CYMBALTA30 M2 PO; +DILT120 PO; +HYDACE10B PO; +PRESERVISION A1 EAC1 PO; +SPIRIVA RESPIMAT4 G3 INH
== END | disposition home or self-care (01) ==
LOC: LAB SHORT 15:03
DX: N34.2 Other urethritis (principal)
CPT/HCPCS: 87077; 87086; 87186

== ENCOUNTER → 2021-01-14 | Outpatient (CLI) | payer OTHER | END | disposition home or self-care (01) | LOC: LAB SHORT 16:20 → LAB 16:20 | DX: N39.0 Urinary tract infection, site not specified (principal) | CPT/HCPCS: 87077; 87086; 87186 ==

== ENCOUNTER 2021-04-17 12:00 | Emergency (ER) | payer OTHER ==
[~2021-04-17] VITALS: Ht 165.1 cm; Wt 58.1 kg
[2021-04-17 12:44] LABS: BASOPHILS ABSOLUTE AUTO 0.05 K/mm3 (0.00-0.23); BASOPHILS PERCENT AUTO 0 % (0-2); EOSINOPHILS ABSOLUTE AUTO 0.17 K/mm3 (0.00-0.68); EOSINOPHILS PERCENT AUTO 2 % (0-6); Hematocrit 43.4 % (33.0-51.0); Hemoglobin 13.7 g/dL (11.5-16.0); IMMATURE GRAN ABSOLUTE AUTO 0.06 K/mm3 (0.00-0.10); IMMATURE GRAN PERCENT AUTO 1 % (0-1); LYMPHOCYTES ABSOLUTE AUTO 2.04 K/mm3 (0.84-5.20); LYMPHOCYTES PERCENT AUTO 18 % (21-46); MONOCYTES ABSOLUTE AUTO 1.13 K/mm3 (0.16-1.47); MONOCYTES PERCENT AUTO 10 % (4-13); Mean Corpuscular HGB 31.4 pg (26.0-34.0); Mean Corpuscular HGB Conc 31.6 g/dL (31.5-36.5); Mean Corpuscular Volume 99 fL (80-100); Mean Platelet Volume 10.4 fL (9.1-12.4); NEUTROPHILS ABSOLUTE AUTO 8.08 K/mm3 (1.96-9.15); NEUTROPHILS PERCENT AUTO 70 % (41-73); Platelet Count 190 K/mm3 (150-400); RDW Coefficient Variation 15.5 % (11.7-14.2); RDW Standard Deviation 57.4 fL (35.1-46.3); Red Blood Cell Count 4.37 M/mm3 (3.80-5.20); White Blood Cell Count 11.53 K/mm3 (4.00-11.30)
[2021-04-17 13:10] LABS: Alanine Aminotransfer (ALT/SGP 40 U/L (12-78); Albumin, Blood 3.2 g/dL (3.4-5.0); Alk Phos 64 U/L (50-136); Anion Gap 7 mmol/L (6-16); Aspartate Aminotrans (AST/SGOT 55 U/L (12-37); Bilirubin, Total 0.4 mg/dL (0.1-1.0); Blood Urea Nitrogen 40 mg/dL (8-24); Bun/Creatinine Ratio 34.2 (12.0-20.0); CO2, Blood 24 mmol/L (21-32); Chloride, Blood 104 mmol/L (98-108); Creatinine, Blood 1.17 mg/dL (0.40-1.00); Globulin, Blood 3.3 g/dL (2.2-4.0); Glomerular Filtration Rate 44 (60-); Glucose, Blood 154 mg/dL (70-99); Sodium, Blood 135 mmol/L (136-145); Total Protein, Blood 6.5 g/dL (6.4-8.2); Troponin I <0.015 ng/mL (0.000-0.040)
[2021-04-17 14:05] LABS: Valproic Acid 11.5 ug/mL (50.0-100.0)
[2021-04-17 15:15] LABS: Source, Urine Clean Catch
[2021-04-17 15:17] LABS: Appearance, Urine Clear (Clear); Bilirubin, Urine Neg (Neg); Blood, Urine Neg (Neg); Color, Urine Yellow (P-Yellow); Glucose Qualitative, Urine Neg (Neg); Ketones, Urine Neg (Neg); Leukocyte Esterase, Urine 3+ (Neg); Nitrite, Urine Neg (Neg); Protein, Urine Neg (Neg); Urobilinogen, Urine NORM (Normal)
[2021-04-17 15:25] LABS: Bacteria Many /hpf; Red Blood Cells, Urine 0-2 /hpf (0-2); Squamous Epithelial Cells Rare /hpf (Few); White Blood Cells, Urine 25-50 /hpf (0-5)
== END 2021-04-17 17:14 | disposition home or self-care (01) ==
LOC: ER 12:00
PROVIDERS: Emergency Medicine
DX: R40.4 Transient alteration of awareness (principal); I11.0 Hypertensive heart disease with heart failure; I50.9 Heart failure, unspecified; J44.9 Chronic obstructive pulmonary disease, unspecified; Z87.891 Personal history of nicotine dependence; Z91.030 Bee allergy status; Z91.048 Other nonmedicinal substance allergy status; Z79.84 Long term (current) use of oral hypoglycemic drugs; Z79.899 Other long term (current) drug therapy; Z79.82 Long term (current) use of aspirin; Z79.52 Long term (current) use of systemic steroids
CPT/HCPCS: 36415; 51701; 71046; 80053; 80164; 81001; 82140; 82947; 83880; 84484; 85025; 87077; 87086; 87186; 93005; 93010; 99284-25; A9270

== ENCOUNTER → 2021-05-04 | Outpatient (CLI) | payer OTHER | END | disposition home or self-care (01) | LOC: LAB SHORT 17:20 | DX: N39.0 Urinary tract infection, site not specified (principal) | CPT/HCPCS: 87086 ==

== ENCOUNTER → 2021-06-29 | Outpatient (CLI) | payer OTHER ==
[~2021-06-29] MED LIST changes: +ONDA4ODT MM
[2021-06-29 15:19] LABS: Source, Urine Clean Catch
[2021-06-29 16:24] LABS: Appearance, Urine Turbid (Clear); Bilirubin, Urine Neg (Neg); Blood, Urine 3+ (Neg); Color, Urine Yellow (P-Yellow); Glucose Qualitative, Urine Neg (Neg); Ketones, Urine Neg (Neg); Leukocyte Esterase, Urine 3+ (Neg); Nitrite, Urine Neg (Neg); Protein, Urine 2+ (Neg); Specific Gravity, Urine 1.015 (1.003-1.022); Urobilinogen, Urine NORM (Normal)
[2021-06-29 17:17] LABS: White Blood Cells, Urine TNTC /hpf (0-5)
[2021-06-29 17:18] LABS: Squamous Epithelial Cells Rare /hpf (Few)
[2021-06-29 17:19] LABS: Bacteria Many /hpf; Transitional Epithelial Cells Rare /hpf (0-Rare)
== END ==
LOC: LAB 14:28 → LAB SHORT 14:28
PROVIDERS: Hospitalist
DX: N39.0 Urinary tract infection, site not specified (principal)
CPT/HCPCS: 81001

== ENCOUNTER → 2021-07-07 | Outpatient (CLI) | payer OTHER | END | disposition home or self-care (01) | LOC: LAB SHORT 12:00 → LAB 12:00 | DX: N39.0 Urinary tract infection, site not specified (principal) | CPT/HCPCS: 87077; 87086; 87186 ==

== ENCOUNTER → 2021-11-05 | Outpatient (CLI) | payer OTHER | LOC: LAB 11:35 → LAB SHORT 11:35 | DX: R30.1 Vesical tenesmus (principal) | CPT/HCPCS: 87086 ==

== ENCOUNTER 2021-12-29 14:32 | Emergency (ER) | payer OTHER ==
[~2021-12-29] VITALS: Ht 165.1 cm; Wt 56.7 kg
[2021-12-29 15:12] LABS: BASOPHILS ABSOLUTE AUTO 0.06 K/mm3 (0.00-0.23); BASOPHILS PERCENT AUTO 1 % (0-2); EOSINOPHILS ABSOLUTE AUTO 0.11 K/mm3 (0.00-0.68); EOSINOPHILS PERCENT AUTO 1 % (0-6); Hemoglobin 13.1 g/dL (11.5-16.0); IMMATURE GRAN ABSOLUTE AUTO 0.03 K/mm3 (0.00-0.10); IMMATURE GRAN PERCENT AUTO 0 % (0-1); LYMPHOCYTES ABSOLUTE AUTO 1.75 K/mm3 (0.84-5.20); LYMPHOCYTES PERCENT AUTO 20 % (21-46); MONOCYTES ABSOLUTE AUTO 1.01 K/mm3 (0.16-1.47); MONOCYTES PERCENT AUTO 11 % (4-13); Mean Corpuscular HGB 31.2 pg (26.0-34.0); Mean Corpuscular HGB Conc 32.8 g/dL (31.5-36.5); Mean Corpuscular Volume 95 fL (80-100); Mean Platelet Volume 10.4 fL (9.1-12.4); NEUTROPHILS ABSOLUTE AUTO 6.02 K/mm3 (1.96-9.15); NEUTROPHILS PERCENT AUTO 67 % (41-73); Platelet Count 196 K/mm3 (150-400); RDW Coefficient Variation 13.1 % (11.7-14.2); RDW Standard Deviation 46.2 fL (35.1-46.3); White Blood Cell Count 8.98 K/mm3 (4.00-11.30)
[2021-12-29 15:29] LABS: Albumin, Blood 3.4 g/dL (3.4-5.0); Bilirubin, Total 0.2 mg/dL (0.1-1.0); Bun/Creatinine Ratio 18.1 (12.0-20.0); Calcium, Blood 9.9 mg/dL (8.5-10.1); Creatinine, Blood 0.83 mg/dL (0.40-1.00); Globulin, Blood 3.3 g/dL (2.2-4.0); Potassium, Blood 4.4 mmol/L (3.5-5.5); Total Protein, Blood 6.7 g/dL (6.4-8.2)
[2021-12-29 18:51] LABS: Source, Urine Clean Catch
[2021-12-29 19:11] LABS: Appearance, Urine Cloudy (Clear); Bilirubin, Urine Neg (Neg); Blood, Urine 2+ (Neg); Glucose Qualitative, Urine Neg (Neg); Ketones, Urine Neg (Neg); Leukocyte Esterase, Urine 3+ (Neg); Nitrite, Urine Pos (Neg); Protein, Urine 2+ (Neg); Urobilinogen, Urine NORM (Normal); pH, Urine 6.5 (5.0-8.0)
[2021-12-29 19:21] LABS: Color, Urine Pale Yellow (P-Yellow)
[2021-12-29 19:22] LABS: White Blood Cells, Urine TNTC /hpf (0-5)
[2021-12-29 19:23] LABS: Bacteria Many /hpf; Squamous Epithelial Cells Not Seen /hpf (Few)
[2021-12-29] MEDS ORDERED: SULTRIDS PO (19:34)
[2021-12-31] MEDS ORDERED: OXYCODONE-ACET1 EAC2 (05:57)
== END 2021-12-29 20:06 | disposition home or self-care (01) ==
LOC: ER 14:32
PROVIDERS: Emergency Medicine; Physician Assistant
DX: G56.32 Lesion of radial nerve, left upper limb (principal); N39.0 Urinary tract infection, site not specified; I11.0 Hypertensive heart disease with heart failure; I50.9 Heart failure, unspecified; J44.9 Chronic obstructive pulmonary disease, unspecified; E11.9 Type 2 diabetes mellitus without complications; Z79.899 Other long term (current) drug therapy; Z79.82 Long term (current) use of aspirin; Z79.52 Long term (current) use of systemic steroids; Z91.030 Bee allergy status; Z91.09 Other allergy status, other than to drugs and biological substances; Z88.8 Allergy status to other drugs, medicaments and biological substances; Z79.84 Long term (current) use of oral hypoglycemic drugs; Z87.891 Personal history of nicotine dependence
CPT/HCPCS: 36415; 71045; 80053; 81001; 84484; 85025; 87077; 87086; 87186; 93005; 93010; 99284-25

== ENCOUNTER 2021-12-30 18:11 | Inpatient (IN) | payer OTHER ==
[~2021-12-30] VITALS: Ht 165.1 cm; Wt 52.2 kg
[~2021-12-30 18:11] MED LIST changes: +SULTRIDS PO
[2021-12-31 04:04] LABS: BASOPHILS ABSOLUTE AUTO 0.06 K/mm3 (0.00-0.23); BASOPHILS PERCENT AUTO 1 % (0-2); EOSINOPHILS PERCENT AUTO 1 % (0-6); Hematocrit 40.1 % (33.0-51.0); Hemoglobin 13.2 g/dL (11.5-16.0); IMMATURE GRAN ABSOLUTE AUTO 0.03 K/mm3 (0.00-0.10); IMMATURE GRAN PERCENT AUTO 0 % (0-1); LYMPHOCYTES PERCENT AUTO 15 % (21-46); MONOCYTES ABSOLUTE AUTO 0.98 K/mm3 (0.16-1.47); MONOCYTES PERCENT AUTO 11 % (4-13); Mean Corpuscular HGB 31.3 pg (26.0-34.0); Mean Corpuscular HGB Conc 32.9 g/dL (31.5-36.5); Mean Corpuscular Volume 95 fL (80-100); Mean Platelet Volume 10.1 fL (9.1-12.4); NEUTROPHILS ABSOLUTE AUTO 6.15 K/mm3 (1.96-9.15); NEUTROPHILS PERCENT AUTO 71 % (41-73); Platelet Count 186 K/mm3 (150-400); RDW Coefficient Variation 13.1 % (11.7-14.2); RDW Standard Deviation 45.8 fL (35.1-46.3); Red Blood Cell Count 4.22 M/mm3 (3.80-5.20); White Blood Cell Count 8.62 K/mm3 (4.00-11.30)
[2021-12-31 04:24] LABS: Bun/Creatinine Ratio 18.9 (12.0-20.0); Calcium, Blood 9.5 mg/dL (8.5-10.1); Creatinine, Blood 0.64 mg/dL (0.40-1.00); Potassium, Blood 4.1 mmol/L (3.5-5.5)
[2021-12-31] MEDS ORDERED: ZOMIG2.5 M1 PO (05:54)
[2021-12-31] MEDS ORDERED: AMIT50 PO (05:54)
[2021-12-31] MEDS ORDERED: Potassium Chlo20 ME1 PO (05:55)
[2021-12-31] MEDS ORDERED: FUROSEMIDE20 MG PO (05:56)
[2021-12-31] MEDS ORDERED: Prinivil10 MG PO (05:57)
[2021-12-31] MEDS ORDERED: OXYCODONE-ACET1 EAC2 PO (05:57)
[2021-12-31 06:32] LABS: BASOPHILS ABSOLUTE AUTO 0.05 K/mm3 (0.00-0.23); BASOPHILS PERCENT AUTO 1 % (0-2); EOSINOPHILS ABSOLUTE AUTO 0.07 K/mm3 (0.00-0.68); EOSINOPHILS PERCENT AUTO 1 % (0-6); Hematocrit 44.3 % (33.0-51.0); Hemoglobin 14.4 g/dL (11.5-16.0); IMMATURE GRAN ABSOLUTE AUTO 0.04 K/mm3 (0.00-0.10); IMMATURE GRAN PERCENT AUTO 0 % (0-1); LYMPHOCYTES ABSOLUTE AUTO 1.46 K/mm3 (0.84-5.20); LYMPHOCYTES PERCENT AUTO 16 % (21-46); MONOCYTES ABSOLUTE AUTO 1.02 K/mm3 (0.16-1.47); MONOCYTES PERCENT AUTO 11 % (4-13); Mean Corpuscular HGB 30.8 pg (26.0-34.0); Mean Corpuscular HGB Conc 32.5 g/dL (31.5-36.5); Mean Corpuscular Volume 95 fL (80-100); Mean Platelet Volume 10.2 fL (9.1-12.4); NEUTROPHILS ABSOLUTE AUTO 6.31 K/mm3 (1.96-9.15); NEUTROPHILS PERCENT AUTO 71 % (41-73); Platelet Count 205 K/mm3 (150-400); RDW Standard Deviation 45.2 fL (35.1-46.3); Red Blood Cell Count 4.67 M/mm3 (3.80-5.20); White Blood Cell Count 8.95 K/mm3 (4.00-11.30)
[2021-12-31 06:49] LABS: Albumin/Globulin Ratio 1.1 (0.8-1.8); Bilirubin, Total 0.5 mg/dL (0.1-1.0); Bun/Creatinine Ratio 18.1 (12.0-20.0); Calcium, Blood 9.9 mg/dL (8.5-10.1); Creatinine, Blood 0.66 mg/dL (0.40-1.00); Globulin, Blood 3.6 g/dL (2.2-4.0); Potassium, Blood 3.5 mmol/L (3.5-5.5); Total Protein, Blood 7.6 g/dL (6.4-8.2)
--- NOTE | 2021-12-31 07:44 | NUR ---
ASSUMED CARE OF PT AT 0700 THIS MORNING. PT UP TO COMMODE, HR UP TO 190, APPEARS TO BE AFIB RVR ON BUSINESS RESILIENCY MANAGER. PT IS VERY SOB, GALLO, BREATH SOUNDS VERY DIMINISHED WITH SCATTERED WHEEZES NOTED. PT IS ON BASELINE 3L 02 VIA NC. TROPONIN IS NOTED TO BE TRENDING UP OVERNIGHT, WITH A CRITICAL RESULT OF [address] NOONAN CONTACTED VIA PHONE AND UPDATED OF THE PT'S CONDITION AND CRITICAL LAB VALUE AT THIS TIME. HE STATES HE WILL ENTER ORDERS FOR DIGOXIN AND ROUND ON THE PT THIS AM. PT IS BACK IN BED RESTING COMFORTABLY AT THIS TIME, CALL LIGHT IN REACH, BED ALARM ON FOR SAFETY. HR HAS SLOWED TO 120-130s NOW THAT PT IS AT REST. SEE DOCUMENTED VS.
--- NOTE | 2021-12-31 07:48 | NUR ---
SHIFT SUMMARY PT AOX4 ON ARRIVAL FROM ER. GRANDDAUGHTER ROSSANA ACCOMPANIED PT TO ROOM. GRANDDAUGHTER AIDS IN PROVIDING INFORMATION WITH PT. PT DENIED CP ON ARRIVAL FROM ED. STATED HAVING WEAKNESS IN L ARM AND C/O CRAMPING IN A PARTICULAR SPOT IN THE ARM AND PAIN THAT CAME AND WENT. PT STATES URINARY FREQUENCY, WAS DX WITH UTI AND PRESCRIBED ANTIBIOTICS FROM ER. PT AND GRANDDAUGHTER STATE PT HAD NOT PICKED UP ANTIBIOTIC YET. PT HAD TO USE COMMODE SHORTLY AFTER ARRIVAL FROM ED. DYSPNEIC WITH UP TO COMMODE. SATS 97-99% ON 3 L VIA NC. PT VISIBLY DROWSY, HAS DIFFICULTY ANSWERING QUESTIONS D/T DROWSINESS. PT AND GRANDDAUGHTER NOTIFY THIS RN THAT PT HAS HAD POOR APPETITE AND LOST WEIGHT UNINTENTIONALLY. PT AND GRANDDAUGHTER UNSURE OF PT'S HOME MED LIST REGARDING ACCURACY AND THE PATIENT'S MEDICATIONS WILL NEED MORE THOROUGH RECONCILIATION.
--- NOTE | 2021-12-31 09:03 | NUR ---
CARDIZEM GTT NOT STARTED DUE TO HR LESS THAN 100.
--- NOTE | 2021-12-31 09:51 | NUR ---
DR NOONAN UPDATED ON PT'S CONDITION AND PT'S REQUEST FOR HOME PAIN MEDICAATION. NEW ORDERS RECEIVED.
--- NOTE | 2021-12-31 17:49 | NUR ---
NO ACUTE EVENTS T/O THE REST OF THE SHIFT SINCE LAST RN NOTE. IA'S HR AND BP HAVE REMAINED CONTROLED. PT'S GRAND DAUGHTER AT BEDSIDE AND UPDATED ON PT'S CONDITION AND POSSIBLE DISCHARGE TOMORROW. PT IS ABLE TO USE CALL LIGHT FOR NEEDS, BED ALARM ON FOR SAFETY, WILL CONTINUE TO MONITOR AND GIVE REPORT TO NOC SHIFT RN.
--- NOTE | 2022-01-01 02:14 | NUR ---
PT HAD ELEVATED BP AROUND 1130 212/73 10MG PRN OF HYDRALIZINE WAS GIVEN. BP DROPED TO 133/72 SHORTLY AFTER SHE C/0 CHEST TIGHTNESS HOSPITALIST WAS CALLED AND NO ORDERS GIVEN. THEN PT CALLED TO C/O TREMORS AND JERKING IN ALL EXTREMITIES THAT WAS NEW. CHECK A BLOOD SUGAR 100. THEN CALLED PHARMASIST TO DISCUSE POSSIBLE ADVERSE SIDEFFECT OF THE HYDRALIZINE. THEN CALLED HOSPITALIST AGAIN AND NO NEW ORDERS GIVEN WILL CLOSLY MONITOR PT AND REPORT ANY CHANGES OR WORSING OF SYMPTOMS
[2022-01-01 04:19] LABS: BASOPHILS ABSOLUTE AUTO 0.04 K/mm3 (0.00-0.23); BASOPHILS PERCENT AUTO 1 % (0-2); EOSINOPHILS ABSOLUTE AUTO 0.16 K/mm3 (0.00-0.68); EOSINOPHILS PERCENT AUTO 2 % (0-6); Hematocrit 40.5 % (33.0-51.0); Hemoglobin 13.3 g/dL (11.5-16.0); IMMATURE GRAN ABSOLUTE AUTO 0.02 K/mm3 (0.00-0.10); IMMATURE GRAN PERCENT AUTO 0 % (0-1); LYMPHOCYTES ABSOLUTE AUTO 1.51 K/mm3 (0.84-5.20); LYMPHOCYTES PERCENT AUTO 19 % (21-46); MONOCYTES ABSOLUTE AUTO 0.96 K/mm3 (0.16-1.47); MONOCYTES PERCENT AUTO 12 % (4-13); Mean Corpuscular HGB Conc 32.8 g/dL (31.5-36.5); Mean Corpuscular Volume 94 fL (80-100); Mean Platelet Volume 10.6 fL (9.1-12.4); NEUTROPHILS PERCENT AUTO 66 % (41-73); Platelet Count 194 K/mm3 (150-400); RDW Coefficient Variation 12.9 % (11.7-14.2); Red Blood Cell Count 4.29 M/mm3 (3.80-5.20); White Blood Cell Count 7.99 K/mm3 (4.00-11.30)
[2022-01-01 04:37] LABS: Albumin, Blood 3.2 g/dL (3.4-5.0); Bilirubin, Total 0.3 mg/dL (0.1-1.0); Bun/Creatinine Ratio 26.4 (12.0-20.0); Calcium, Blood 9.7 mg/dL (8.5-10.1); Creatinine, Blood 0.72 mg/dL (0.40-1.00); Globulin, Blood 3.3 g/dL (2.2-4.0); Potassium, Blood 3.7 mmol/L (3.5-5.5); Total Protein, Blood 6.5 g/dL (6.4-8.2)
--- NOTE | 2022-01-01 06:00 | NUR ---
END OF SHIFT NO OTHER EVENTS AFTER TREMORS AND CHEST TIGHTNESS BP REMAINED <165 AND PT HAD NO OTHER C/O PAIN OR TREMORS. WILL REPORT TO ON COMING RN
--- NOTE | 2022-01-01 17:29 | NUR ---
PT RESTING COMFORTABLY T/O THE SHIFT, NO ACUTE EVENTS, HR AND BP STABLE. PT'S DTR AT BEDSIDE THIS EVENING AND MED REC UPDATED. PO MEDICATIONS ADJUSTED TODAY, MONITOR BP OVERNIGHT AND PLAN TO DC IN THE AM. PT'S DTR TO PICK HER UP AND TO BE INCLUDED IN DC TEACHING. PT USING CALL LIGHT APPROPRIATELY, CALL LIGHT IN REACH, WILL CONTINUE TO MONITOR AND GIVE REPORT TO NOC SHIFT RN.
--- NOTE | 2022-01-01 22:22 | NUR ---
CARE ASSUMPTION: PATIENT ASLEEP IN BED. A&O X4, VSS ON 3L NC. PATIENT LISTENING TO AUDIOBOOK DAUGHTER BROUGHT IN FOR HER. PATIENT IS ANXIOUS ABOUT BP INCREASING AND HOPES TO GO HOME TOMORROW. BED LOW WITH CALL LIGHT IN REACH.
[2022-01-02 03:57] LABS: BASOPHILS ABSOLUTE AUTO 0.06 K/mm3 (0.00-0.23); BASOPHILS PERCENT AUTO 1 % (0-2); EOSINOPHILS ABSOLUTE AUTO 0.19 K/mm3 (0.00-0.68); EOSINOPHILS PERCENT AUTO 3 % (0-6); Hematocrit 38.5 % (33.0-51.0); Hemoglobin 12.4 g/dL (11.5-16.0); IMMATURE GRAN ABSOLUTE AUTO 0.05 K/mm3 (0.00-0.10); IMMATURE GRAN PERCENT AUTO 1 % (0-1); LYMPHOCYTES ABSOLUTE AUTO 2.01 K/mm3 (0.84-5.20); LYMPHOCYTES PERCENT AUTO 28 % (21-46); MONOCYTES PERCENT AUTO 13 % (4-13); Mean Corpuscular HGB 31.2 pg (26.0-34.0); Mean Corpuscular HGB Conc 32.2 g/dL (31.5-36.5); Mean Corpuscular Volume 97 fL (80-100); Mean Platelet Volume 10.2 fL (9.1-12.4); NEUTROPHILS ABSOLUTE AUTO 3.97 K/mm3 (1.96-9.15); NEUTROPHILS PERCENT AUTO 55 % (41-73); Platelet Count 194 K/mm3 (150-400); RDW Coefficient Variation 13.2 % (11.7-14.2); RDW Standard Deviation 47.1 fL (35.1-46.3); Red Blood Cell Count 3.98 M/mm3 (3.80-5.20); White Blood Cell Count 7.18 K/mm3 (4.00-11.30)
[2022-01-02 04:14] LABS: Bun/Creatinine Ratio 31.7 (12.0-20.0); Calcium, Blood 9.1 mg/dL (8.5-10.1); Creatinine, Blood 0.85 mg/dL (0.40-1.00); Potassium, Blood 4.1 mmol/L (3.5-5.5)
--- NOTE | 2022-01-02 06:50 | NUR ---
SHIFT SUMMARY: PATIENT VS STABLE T/O SHIFT, DENIES SOB OR CHEST PAIN. PATIENT RESTED WELL AND USED CALL LIGHT APPROPRIATELY. SYSTOLIC BP <164. MEDICATED PER EMAR. AMBULATED TO BSC. NO ACUTE CHANGES. PLAN TO D/C TODAY PER DR. TAYLOR. REPORT GIVEN.
[2022-01-02] MEDS ORDERED: VISBIOME 112.51 EACH PO (08:39)
[2022-01-02] MEDS ORDERED: Amlodipine Besyl5 MG PO (08:39)
[2022-01-02] MEDS ORDERED: CIPR250 PO (08:40)
[2022-01-02] MEDS ORDERED: HIPREX1 G1 PO (09:57)
[2022-01-02] MEDS ORDERED: ZOLM2.5 PO (09:58)
--- NOTE | 2022-01-02 11:58 | NUR ---
NOTIFIED DR TAYLOR OF BLOOD GLUCOSE, PT GIVEN APPLE JUICE AND WILL RECHECK CBG IN 30 MINUTES.
--- NOTE | 2022-01-02 12:55 | NUR ---
DISCHARGE SUMMARY Plans for discharge this am, pt daughter to room asking for update from , notified Dr Nelson, to room. New order for cortisol testing, completed, notified of results, ok to go home. Notified of cbg recheck, ok to continues with discharge plans. Daughter and patient educated on discharge instructions, follow up appointments and prescriptions. Dr Nelson ok's pt to continue taking methenamine and zolmitripan. With cbg at 44 before lunch, New order to hold meformin until follow up with pcp, pt and daughter notified, daughter express concerns regarding high blood sugar, daughter plans to check patients blood sugar and report to pcp if it starts trending up. Daughter and patient express the desire to go home. Pt left room via wheelchair at 1251.
== END 2022-01-02 12:51 | disposition home or self-care (01) | DRG 689 ==
LOC: ER 18:11 → PCU 18:12
PROVIDERS: Family Medicine; Hospitalist; Student in an Organized Health Care Education/Training Program; ADMIT Internal Medicine
DX: N39.0 Urinary tract infection, site not specified (principal); I21.A1 Myocardial infarction type 2; I16.1 Hypertensive emergency; Z16.29 Resistance to other single specified antibiotic; B96.5 Pseudomonas (aeruginosa) (mallei) (pseudomallei) as the cause of diseases classified elsewhere; J44.9 Chronic obstructive pulmonary disease, unspecified; K21.9 Gastro-esophageal reflux disease without esophagitis; E11.9 Type 2 diabetes mellitus without complications; E03.9 Hypothyroidism, unspecified; Z91.030 Bee allergy status; Z88.8 Allergy status to other drugs, medicaments and biological substances; Z99.81 Dependence on supplemental oxygen; I50.9 Heart failure, unspecified; I11.0 Hypertensive heart disease with heart failure; Z90.710 Acquired absence of both cervix and uterus; Z90.49 Acquired absence of other specified parts of digestive tract; Z98.890 Other specified postprocedural states; Z87.891 Personal history of nicotine dependence; Z66 Do not resuscitate; Z79.4 Long term (current) use of insulin; Z79.82 Long term (current) use of aspirin; Z79.899 Other long term (current) drug therapy; Z79.2 Long term (current) use of antibiotics; I27.20 Pulmonary hypertension, unspecified; I08.3 Combined rheumatic disorders of mitral, aortic and tricuspid valves; I48.91 Unspecified atrial fibrillation
CPT/HCPCS: 36415; 70450; 80048; 80053; 80400; 82533; 82947; 83880; 84484; 85025; 93005; 93010; 93306; 93975; 94640; 94664; 94760; 94762; 96372; 96374; 96376; 97110; 97116; 97161; 99285-25; A9270; G0378; J0360; J0696; J0834; J1160; J1650; J1956

== ENCOUNTER → 2022-01-18 | Outpatient (CLI) | payer OTHER ==
[~2022-01-18] MED LIST changes: +AMIT50 PO; +Amlodipine Besyl5 MG PO; +CIPR250 PO; +Potassium Chlo20 ME1 PO; +Prinivil10 MG PO; +VISBIOME 112.51 EACH PO; +ZOLM2.5 PO; +ZOMIG2.5 M1 PO
== END | disposition home or self-care (01) ==
LOC: LAB 15:41 → LAB SHORT 15:41
DX: D04.39 Carcinoma in situ of skin of other parts of face (principal)
CPT/HCPCS: 88305

== ENCOUNTER → 2022-01-25 | Outpatient (CLI) | payer OTHER | END | disposition home or self-care (01) | LOC: LAB 13:39 → LAB SHORT 13:39 | DX: R35.0 Frequency of micturition (principal) | CPT/HCPCS: 87086 ==

== ENCOUNTER 2022-03-09 16:43 | Emergency (ER) | payer OTHER ==
[~2022-03-09] VITALS: Ht 167.6 cm; Wt 56.7 kg
[~2022-03-09 16:43] MED LIST changes: -CEFP200 PO
[2022-03-09 22:52] LABS: Source, Urine Foley catheter
[2022-03-09 22:56] LABS: Appearance, Urine Hazy (Clear); Bilirubin, Urine Neg (Neg); Blood, Urine 1+ (Neg); Color, Urine Pale Yellow (P-Yellow); Glucose Qualitative, Urine Neg (Neg); Ketones, Urine Neg (Neg); Leukocyte Esterase, Urine 2+ (Neg); Nitrite, Urine Pos (Neg); Protein, Urine 2+ (Neg); Specific Gravity, Urine 1.015 (1.003-1.022); Urobilinogen, Urine NORM (Normal)
[2022-03-09 23:02] LABS: Amorphous Light (0-Heavy); Bacteria Many /hpf; Red Blood Cells, Urine 0-2 /hpf (0-2); Squamous Epithelial Cells Few /hpf (Few)
[2022-03-09] MEDS ORDERED: CEFP200 PO (23:42)
== END 2022-03-09 23:53 | disposition home or self-care (01) ==
LOC: ER 16:43
PROVIDERS: Emergency Medicine
DX: U07.1 COVID-19 (principal); N39.0 Urinary tract infection, site not specified; I11.0 Hypertensive heart disease with heart failure; I50.9 Heart failure, unspecified; J44.9 Chronic obstructive pulmonary disease, unspecified; E11.9 Type 2 diabetes mellitus without complications; Z91.030 Bee allergy status; Z88.8 Allergy status to other drugs, medicaments and biological substances; Z79.899 Other long term (current) drug therapy; Z79.84 Long term (current) use of oral hypoglycemic drugs
CPT/HCPCS: 81001; 87086; 99284

== ENCOUNTER → 2022-03-09 | Outpatient (CLI) | payer OTHER ==
[~2022-03-09] MED LIST changes: +CEFP200 PO
[2022-03-09 14:02] LABS: BASOPHILS ABSOLUTE AUTO 0.04 K/mm3 (0.00-0.23); BASOPHILS PERCENT AUTO 1 % (0-2); EOSINOPHILS ABSOLUTE AUTO 0.03 K/mm3 (0.00-0.68); EOSINOPHILS PERCENT AUTO 1 % (0-6); Hematocrit 39.6 % (33.0-51.0); Hemoglobin 13.1 g/dL (11.5-16.0); IMMATURE GRAN ABSOLUTE AUTO 0.03 K/mm3 (0.00-0.10); IMMATURE GRAN PERCENT AUTO 1 % (0-1); LYMPHOCYTES ABSOLUTE AUTO 1.31 K/mm3 (0.84-5.20); LYMPHOCYTES PERCENT AUTO 20 % (21-46); MONOCYTES ABSOLUTE AUTO 0.77 K/mm3 (0.16-1.47); MONOCYTES PERCENT AUTO 12 % (4-13); Mean Corpuscular HGB 30.8 pg (26.0-34.0); Mean Corpuscular HGB Conc 33.1 g/dL (31.5-36.5); Mean Corpuscular Volume 93 fL (80-100); Mean Platelet Volume 10.4 fL (9.1-12.4); NEUTROPHILS ABSOLUTE AUTO 4.36 K/mm3 (1.96-9.15); NEUTROPHILS PERCENT AUTO 67 % (41-73); Platelet Count 165 K/mm3 (150-400); RDW Coefficient Variation 15.1 % (11.7-14.2); Red Blood Cell Count 4.26 M/mm3 (3.80-5.20); White Blood Cell Count 6.54 K/mm3 (4.00-11.30)
[2022-03-09 14:16] LABS: Albumin, Blood 3.2 g/dL (3.4-5.0); Bilirubin, Total 0.2 mg/dL (0.1-1.0); Bun/Creatinine Ratio 17.4 (12.0-20.0); Calcium, Blood 8.8 mg/dL (8.5-10.1); Creatinine, Blood 1.09 mg/dL (0.40-1.00); Globulin, Blood 3.1 g/dL (2.2-4.0); Potassium, Blood 4.5 mmol/L (3.5-5.5); Total Protein, Blood 6.3 g/dL (6.4-8.2)
== END ==
LOC: LAB 13:55 → LAB SHORT 13:55
PROVIDERS: Chiropractor
DX: I95.9 Hypotension, unspecified (principal); N39.0 Urinary tract infection, site not specified
CPT/HCPCS: 80053; 83605; 85025; 87040; 87086

== ENCOUNTER 2022-06-01 18:47 | Inpatient (IN) | payer OTHER ==
[~2022-06-01] VITALS: Ht 165.1 cm; Wt 53.5 kg
[~2022-06-01 18:47] MED LIST changes: +CEFP200 PO
[2022-06-01 21:35] LABS: BASOPHILS ABSOLUTE AUTO 0.06 K/mm3 (0.00-0.23); BASOPHILS PERCENT AUTO 0 % (0-2); EOSINOPHILS ABSOLUTE AUTO 0.04 K/mm3 (0.00-0.68); EOSINOPHILS PERCENT AUTO 0 % (0-6); Hematocrit 39.7 % (33.0-51.0); Hemoglobin 12.5 g/dL (11.5-16.0); IMMATURE GRAN ABSOLUTE AUTO 0.07 K/mm3 (0.00-0.10); IMMATURE GRAN PERCENT AUTO 1 % (0-1); LYMPHOCYTES ABSOLUTE AUTO 1.32 K/mm3 (0.84-5.20); LYMPHOCYTES PERCENT AUTO 9 % (21-46); MONOCYTES ABSOLUTE AUTO 1.17 K/mm3 (0.16-1.47); MONOCYTES PERCENT AUTO 8 % (4-13); Mean Corpuscular HGB 30.7 pg (26.0-34.0); Mean Corpuscular HGB Conc 31.5 g/dL (31.5-36.5); Mean Corpuscular Volume 98 fL (80-100); NEUTROPHILS ABSOLUTE AUTO 12.52 K/mm3 (1.96-9.15); NEUTROPHILS PERCENT AUTO 82 % (41-73); Platelet Count 192 K/mm3 (150-400); RDW Coefficient Variation 14.2 % (11.7-14.2); RDW Standard Deviation 50.9 fL (35.1-46.3); Red Blood Cell Count 4.07 M/mm3 (3.80-5.20); White Blood Cell Count 15.18 K/mm3 (4.00-11.30)
[2022-06-01 21:53] LABS: Albumin, Blood 2.9 g/dL (3.4-5.0); Albumin/Globulin Ratio 1.1 (0.8-1.8); Bilirubin, Total 0.2 mg/dL (0.1-1.0); Bun/Creatinine Ratio 24.3 (12.0-20.0); Creatinine, Blood 0.9 mg/dL (0.40-1.00); Globulin, Blood 2.7 g/dL (2.2-4.0); Total Protein, Blood 5.6 g/dL (6.4-8.2)
[2022-06-01 23:40] LABS: Source, Urine Straight Cath
[2022-06-02 00:44] LABS: Appearance, Urine Clear (Clear); Bilirubin, Urine Neg (Neg); Blood, Urine Neg (Neg); Color, Urine Yellow (P-Yellow); Glucose Qualitative, Urine Neg (Neg); Ketones, Urine Neg (Neg); Leukocyte Esterase, Urine Neg (Neg); Nitrite, Urine Neg (Neg); Protein, Urine 1+ (Neg); Urobilinogen, Urine NORM (Normal)
--- NOTE | 2022-06-02 01:00 | NUR ---
PT HERE VIA [facility]. PT IS REPORTING SHE NEEDS TO URINATE, REFUSES BEDPAN. PLACED ON BSC WITH SBA. PT THEN AMBULATORY WITH SBA BACK TO [facility]. PT IS PALE IN COLOR, ALERT AND ORIENTED X3, AND IS A BIT IRRITABLE WITH ALL THE ASSESSMENT QUESTIONS. PT DENIED FEELING DIZZY WHEN UP TO BSC AND ONCE PLACED BACK IN BED. PT WAS STEADY ON HER FEET. REPORT FROM ERIKA GASPAR IS PT HAD A LARGE BM, NO BLOOD, IN ER - WILL PLACE THIS ON I&O'S. PT DENIES ABDOMINAL PAIN AT THIS TIME, HYPO BT'S. IV INFUSING FLAGYL TO LEFT HAND IV SITE. BED ALARM PLACED ON. PT'S MAIN COMPLAINT IS SHE WANTS TO DRINK, OFFERRED TOOTHETTE, REFUSED. CALL LIGHT WITHIN REACH. BED IN LOW POSITION. BED ALARM ON.
--- NOTE | 2022-06-02 03:10 | NUR ---
PT UP TO BSC, SCANT BM OUT WITH APPX 2 TABLESPOONS OF BLOOD - NOTIFIED DR. GRIFFITH OF THIS RESULT.
[2022-06-02 04:18] LABS: BASOPHILS ABSOLUTE AUTO 0.04 K/mm3 (0.00-0.23); BASOPHILS PERCENT AUTO 0 % (0-2); EOSINOPHILS PERCENT AUTO 0 % (0-6); Hematocrit 39.9 % (33.0-51.0); Hemoglobin 13.1 g/dL (11.5-16.0); IMMATURE GRAN ABSOLUTE AUTO 0.06 K/mm3 (0.00-0.10); IMMATURE GRAN PERCENT AUTO 0 % (0-1); LYMPHOCYTES ABSOLUTE AUTO 0.59 K/mm3 (0.84-5.20); LYMPHOCYTES PERCENT AUTO 3 % (21-46); MONOCYTES ABSOLUTE AUTO 1.21 K/mm3 (0.16-1.47); MONOCYTES PERCENT AUTO 7 % (4-13); Mean Corpuscular HGB 30.8 pg (26.0-34.0); Mean Corpuscular HGB Conc 32.8 g/dL (31.5-36.5); Mean Corpuscular Volume 94 fL (80-100); Mean Platelet Volume 9.8 fL (9.1-12.4); NEUTROPHILS ABSOLUTE AUTO 15.21 K/mm3 (1.96-9.15); NEUTROPHILS PERCENT AUTO 89 % (41-73); Platelet Count 197 K/mm3 (150-400); RDW Coefficient Variation 14.2 % (11.7-14.2); RDW Standard Deviation 48.1 fL (35.1-46.3); Red Blood Cell Count 4.26 M/mm3 (3.80-5.20); White Blood Cell Count 17.11 K/mm3 (4.00-11.30)
[2022-06-02 04:33] LABS: Albumin, Blood 3.3 g/dL (3.4-5.0); Albumin/Globulin Ratio 1.1 (0.8-1.8); Bilirubin, Total 0.2 mg/dL (0.1-1.0); Bun/Creatinine Ratio 24.8 (12.0-20.0); Calcium, Blood 9.3 mg/dL (8.5-10.1); Creatinine, Blood 0.85 mg/dL (0.40-1.00); Potassium, Blood 3.8 mmol/L (3.5-5.5); Total Protein, Blood 6.3 g/dL (6.4-8.2)
--- NOTE | 2022-06-02 05:02 | NUR ---
SHIFT SUMMARY - PT HAD BLOOD IN HER STOOL X1 LAST NOC - DR. GRIFFITH NOTIFIED - APPX 2 TABLESPOONS OF BLOOD. PT HAS REMAINED ALERT AND ORIENTED, AND ADAMANT ABOUT HER NEEDS, USING THE BSC, WANTING WATER - EXPLAINED SHE IS NPO, BUT PT REFUSES ORAL CARE, TOOTHETTES "I WANT WATER." EXPLAINED THAT PT ALSO HAD RECEIVED IV FLUIDS - STATES "I CAN'T TASTE THAT." WHEN EXPLAINED PT IS NPO, FOR THE POTENTIAL OF A PROCEDURE DUE TO HER DIAGNOSIS, SHE STATES "THEY WILL HAVE TO CATCH ME FIRST." REPORT IS PT LIVES ALONE WITH A [employer] OFFICER CAREGIVER - PT UNSURE OF THE HOURS CG COMES TO HER HOME. PT WAS IRRIATED ALSO WITH ALL THE ADMIT QUESTIONS, THAT "DOESN'T RELATE TO WHY I AM HERE." BED ALARM ON FOR PT SAFETY. CALL LIGHT WITHIN REACH. BED IN LOW POSITION. WILL CONTINUE TO MONITOR UNTIL AM SHIFT CHANGE.
--- NOTE | 2022-06-02 06:22 | NUR ---
CONTACTED DR. TAYLOR, UPDATED ON BLOODY STOOL X2, WITH THE LAST BM APPX 1/4 CUP OF BLOODY STOOL, WITH SOME CLOTTING NOTED. PT JUST UP TO BSC, WITH 2 PERSON ASSIST.
[2022-06-02] MEDS ORDERED: ATROVENT HFA12.9 GM INH (11:16)
[2022-06-02] MEDS ORDERED: CEFU250T47 PO (11:21)
[2022-06-02] MEDS ORDERED: DIAZEPAM5 M2 PO (11:54)
[2022-06-02] MEDS ORDERED: DILTIAZEM 24HR120 M2 PO (11:54)
[2022-06-02] MEDS ORDERED: ROSUVASTATIN CAL5 MG PO (11:55)
[2022-06-02 12:45] LABS: Hematocrit 36.9 % (33.0-51.0); Hemoglobin 12.2 g/dL (11.5-16.0)
--- NOTE | 2022-06-02 16:24 | NUR ---
SHIFT SUMMARY PATIENT IS ALERT AND ORIENTED. PATIENT HAS HAD NO ACUTE EVENTS THIS SHIFT. VITAL SIGNS REVIEWED. PATIENT HAS BEEN HAVING A SMALL AMOUNT OF BLOOD IN STOOL. DR IS NOT CONCERNED HGB HAS BEEN STABLE. PATIENT HAS BEEN RESTING COMFORTABLY ALL SHIFT. PATIENTS FAMILY HAS BEEN AT BEDSIDE MOST OF SHIFT. PATIENT HAS COMPLAINED OF A HEADACHE. PATIENT HAS NOT COMPLAINED OF ANY ADDITIONAL PAIN, NAUSEA, SOB OR VOMITTING THIS SHIFT. BED IN LOCKED AND LOWEST POSITION. CALL LIGHT IN PLACE. WILL MONITOR UNTIL SHIFT CHANGE.
--- NOTE | 2022-06-03 04:40 | NUR ---
SHIFT SUMMARY 87 YR F ADMITTED ON 06/02/22 FOR ACUTE DIVERTICULITIS/SYNCOPE. DNR. NO ACUTE CHANGES THIS SHIFT. PT C/O PAIN IN BOTH FEET AND GENERALIZED PAIN WELL. MEDICATED PER EMAR. SHE STATED THAT SHE IS NOT HAPPY THAT HER MED SCHEDULE HERE IS DIFFERENT THAN AT HOME. NO BM THIS SHIFT BUT SHE WAS ABLE TO GET UP TO THE BED SIDE COMMODE TO URINATE.
[2022-06-03 04:43] LABS: BASOPHILS ABSOLUTE AUTO 0.04 K/mm3 (0.00-0.23); BASOPHILS PERCENT AUTO 0 % (0-2); EOSINOPHILS ABSOLUTE AUTO 0.06 K/mm3 (0.00-0.68); EOSINOPHILS PERCENT AUTO 0 % (0-6); Hematocrit 33.9 % (33.0-51.0); Hemoglobin 11.5 g/dL (11.5-16.0); IMMATURE GRAN ABSOLUTE AUTO 0.04 K/mm3 (0.00-0.10); IMMATURE GRAN PERCENT AUTO 0 % (0-1); LYMPHOCYTES ABSOLUTE AUTO 0.89 K/mm3 (0.84-5.20); LYMPHOCYTES PERCENT AUTO 7 % (21-46); MONOCYTES ABSOLUTE AUTO 1.14 K/mm3 (0.16-1.47); MONOCYTES PERCENT AUTO 8 % (4-13); Mean Corpuscular HGB Conc 33.9 g/dL (31.5-36.5); Mean Corpuscular Volume 91 fL (80-100); Mean Platelet Volume 9.9 fL (9.1-12.4); NEUTROPHILS ABSOLUTE AUTO 11.52 K/mm3 (1.96-9.15); NEUTROPHILS PERCENT AUTO 84 % (41-73); Platelet Count 158 K/mm3 (150-400); RDW Coefficient Variation 14.2 % (11.7-14.2); RDW Standard Deviation 47.8 fL (35.1-46.3); Red Blood Cell Count 3.71 M/mm3 (3.80-5.20); White Blood Cell Count 13.69 K/mm3 (4.00-11.30)
[2022-06-03 06:28] LABS: Magnesium, Blood 1.5 mg/dL (1.6-2.4)
[2022-06-03 06:33] LABS: Albumin, Blood 2.8 g/dL (3.4-5.0); Bilirubin, Total 0.2 mg/dL (0.1-1.0); Bun/Creatinine Ratio 17.1 (12.0-20.0); Calcium, Blood 8.7 mg/dL (8.5-10.1); Creatinine, Blood 0.64 mg/dL (0.40-1.00); Globulin, Blood 2.7 g/dL (2.2-4.0); Potassium, Blood 3.4 mmol/L (3.5-5.5); Total Protein, Blood 5.5 g/dL (6.4-8.2)
--- NOTE | 2022-06-03 19:32 | NUR ---
SHIFT SUMMARY: PT A&O X4, DARYL, QUILEUTE, AND COMMUCIATES WITH STAFF. PT IMPULSIVE TO USE BEDSIDE CAMMODE AND BED ALARM SET. PT HAD BLOODY BOWEL MOVEMNTS AT THE BEGINNING OF THE SHIFT, AT THE END OF THE SHIFT PT HAD BROWN SOFT STOOL. PT HAD MIGRAINES AND MILD PAIN, DR. TAYLOR PLACE NEW ORDERS FOR PAIN MANAGEMENT. PT CLEAR LIQUID ADVANCED TO REGULAR DIET AND TOLERATED WELL WITH MILD TUMMY ACHE THAT SUBSIDED. PT HAD FAMILY AT BEDSIDE THROUGHOUT THE SHIFT. PT IN BED WITH CALL LIGHT WITHIN REACH.
[2022-06-04] MEDS ORDERED: OMEP20ER PO (00:29)
[2022-06-04] MEDS ORDERED: HIPREX1 G1 PO (00:32)
[2022-06-04 05:00] LABS: Hematocrit 33.2 % (33.0-51.0); Hemoglobin 10.7 g/dL (11.5-16.0); Mean Corpuscular HGB 30.4 pg (26.0-34.0); Mean Corpuscular HGB Conc 32.2 g/dL (31.5-36.5); Mean Corpuscular Volume 94 fL (80-100); Mean Platelet Volume 10.5 fL (9.1-12.4); Platelet Count 154 K/mm3 (150-400); RDW Coefficient Variation 14.3 % (11.7-14.2); RDW Standard Deviation 49.3 fL (35.1-46.3); Red Blood Cell Count 3.52 M/mm3 (3.80-5.20)
--- NOTE | 2022-06-04 05:02 | NUR ---
End of shift Nursing Report Mrs Duran is a 85 year-old female who was brought to the ED by EMS following x3 episodes of syncopy and presented with hypotention. She was admitted to medical for observation. Her code status is DNR with medical history of ETOH and DB II. She is AOX4, and able to communicate needs and wants. Vitals this am BP 175/69, HR 67, Spo2 100% on 3L NC. Patient SBP has been 180's and MD aware. Medicated for LE sharp pain 11/27 with Roxicodone. Iv on Left Hand DC as it was outside the vein. New IV inserted to L-AC-20g.
[2022-06-04 05:52] LABS: Albumin, Blood 2.7 g/dL (3.4-5.0); Anion Gap 5 mmol/L (6-16); Blood Urea Nitrogen 12 mg/dL (8-24); Bun/Creatinine Ratio 15.5 (12.0-20.0); CO2, Blood 29 mmol/L (21-32); Calcium, Blood 8.6 mg/dL (8.5-10.1); Chloride, Blood 106 mmol/L (98-108); Creatinine, Blood 0.77 mg/dL (0.40-1.00); Glomerular Filtration Rate 75 (60-); Glucose, Blood 95 mg/dL (70-99); Magnesium, Blood 1.8 mg/dL (1.6-2.4); Phosphorus, Blood 2.2 mg/dL (2.5-4.9); Potassium, Blood 3.4 mmol/L (3.5-5.5); Sodium, Blood 140 mmol/L (136-145)
[2022-06-04] MEDS ORDERED: METOPROLOL SUCC25 MG PO (12:04)
[2022-06-04] MEDS ORDERED: AMOCLA875 PO (12:07)
[2022-06-04] MEDS ORDERED: GABA100 PO (12:08)
[2022-06-04] MEDS ORDERED: POTASSIUM PHOSPHATE PO (13:10)
[2022-06-04] MEDS ORDERED: SODIUM PHOSPHATE PO (13:10)
--- NOTE | 2022-06-04 13:21 | NUR ---
PT AND FAMILY REQUESTING [facility] ON DISCHARGE.
[2022-06-04] MEDS ORDERED: ONDA4 PO (15:28)
--- NOTE | 2022-06-04 17:07 | NUR ---
PLAN TO D/C TODAY, WHICH ORDERS WERE PUTIN, BUT BEFORE D/C PTN HAD TWO LARGE SOFT STOOLS WITH CRAMPING AND DISCOMFORT. PAIN MEDICATION AND ELIMINATION OF STOOL OFFERED COMFORT TO PTN. SHE RESTED WITH NADIRA PRESENT UNTIL READY TO GO HOME. D/C PAPERWORK REVIEWED WITH PTN AND NADIRA. LAST MINUTE DR TAYLOR CONTACTED FOR ORDER ZOFRAN, WHICH HE WROTE. ALL MEDICATIONS FAXED TO [facility]. ALL QUESTIONS ASKED. REVIEW OF INFORMATION RELATING TO DIVERTICULITIS COMPLETED. ALL QUESTIONS WERE ANSWERED. PTN TAKEN VIA WC BY JOE DWYER TO EXIT WHERE NADIRA PLANNED TO TAKE HER HOME.
== END 2022-06-04 15:40 | disposition home health service (06) | DRG 872 ==
LOC: ER 18:47 → MEDS 06-02 00:34
PROVIDERS: Family Medicine; Student in an Organized Health Care Education/Training Program; ADMIT Family Medicine
DX: A41.9 Sepsis, unspecified organism (principal); K57.32 Diverticulitis of large intestine without perforation or abscess without bleeding; K92.1 Melena; I95.9 Hypotension, unspecified; J44.9 Chronic obstructive pulmonary disease, unspecified; E11.9 Type 2 diabetes mellitus without complications; Z66 Do not resuscitate; I11.0 Hypertensive heart disease with heart failure; I50.9 Heart failure, unspecified; E86.1 Hypovolemia; W18.09XA Striking against other object with subsequent fall, initial encounter; Z91.038 Other insect allergy status; Z88.8 Allergy status to other drugs, medicaments and biological substances; Z79.51 Long term (current) use of inhaled steroids; Z79.84 Long term (current) use of oral hypoglycemic drugs; Z87.440 Personal history of urinary (tract) infections; Z99.81 Dependence on supplemental oxygen; Z79.899 Other long term (current) drug therapy; Z79.82 Long term (current) use of aspirin; Z79.01 Long term (current) use of anticoagulants; Z79.811 Long term (current) use of aromatase inhibitors; Z90.710 Acquired absence of both cervix and uterus; Z90.49 Acquired absence of other specified parts of digestive tract; Z98.890 Other specified postprocedural states; Z87.891 Personal history of nicotine dependence
CPT/HCPCS: 36415; 51701; 70450; 74177; 76705; 80053; 80069; 82947; 83605; 83690; 83735; 83880; 84100; 84484; 85014; 85018; 85025; 85027; 93005; 93010; 94640; 94760; 96361-59; 96374-59; 96375-59; 99285-25; A9270; J0360; J0696; J2405; J3010; J3475; J7030; J7050; Q9967

== ENCOUNTER 2022-10-14 14:23 | Emergency (ER) | payer OTHER ==
[~2022-10-14] VITALS: Ht 165.1 cm; Wt 46.3 kg
[~2022-10-14 14:23] MED LIST changes: +ATROVENT HFA12.9 GM INH; +DIAZEPAM5 M2 PO; +DILTIAZEM 24HR120 M2 PO; +GABA100 PO; +METOPROLOL SUCC25 MG PO; +ONDA4 PO; +POTASSIUM PHOSPHATE PO; +SODIUM PHOSPHATE PO
[2022-10-14 14:29] VITALS: BP 155/79
== END 2022-10-14 16:50 | disposition home or self-care (01) ==
LOC: ER 14:23
DX: S61.512A Laceration without foreign body of left wrist, initial encounter (principal); S61.401A Unspecified open wound of right hand, initial encounter; I11.0 Hypertensive heart disease with heart failure; I50.9 Heart failure, unspecified; E11.9 Type 2 diabetes mellitus without complications; J44.9 Chronic obstructive pulmonary disease, unspecified; Z91.030 Bee allergy status; Z91.048 Other nonmedicinal substance allergy status; Z23 Encounter for immunization; Z88.1 Allergy status to other antibiotic agents; Z79.51 Long term (current) use of inhaled steroids; Z79.899 Other long term (current) drug therapy; Z87.891 Personal history of nicotine dependence; W19.XXXA Unspecified fall, initial encounter
CPT/HCPCS: 70450; 73130; 90714

== ENCOUNTER 2022-11-30 11:53 | Emergency (ER) | payer OTHER ==
[~2022-11-30] VITALS: Ht 165.1 cm; Wt 59.0 kg
[~2022-11-30 11:53] MED LIST changes: +Levaquin750 MG PO
[2022-11-30 15:00] VITALS: BP 136/71
== END 2022-11-30 15:20 | disposition home or self-care (01) ==
LOC: ER 11:53
DX: S01.01XA Laceration without foreign body of scalp, initial encounter (principal); I11.0 Hypertensive heart disease with heart failure; I50.9 Heart failure, unspecified; J44.9 Chronic obstructive pulmonary disease, unspecified; E11.9 Type 2 diabetes mellitus without complications; Z91.030 Bee allergy status; Z91.048 Other nonmedicinal substance allergy status; Z88.1 Allergy status to other antibiotic agents; Z79.51 Long term (current) use of inhaled steroids; Z79.899 Other long term (current) drug therapy; Z87.891 Personal history of nicotine dependence; W18.12XA Fall from or off toilet with subsequent striking against object, initial encounter
CPT/HCPCS: 12004; 70450; 72125; 99284-25